=== PATIENT | female | born 1940 | race Caucasian/White ===

== ENCOUNTER → 2016-08-22 | Outpatient (REF) | payer MEDICARE ==
[2016-08-22 20:07] LABS: PERCENT SATURATION 22.3 % (13.2-37.4)
== END ==
LOC: M LAB REF 16:55
PROVIDERS: ATTEND Internal Medicine
DX: D64.9 Anemia, unspecified (principal)

== ENCOUNTER → 2017-03-08 | Outpatient (CLI) | payer MEDICARE ==
--- NOTE | 2017-03-08 16:29 | REP ---
PA and lateral chest: There are no comparisons. There is cardiomegaly. The interstitium is diffusely coarsened. This could be acute or chronic or acute on chronic. I cannot make this determination in the absence of comparison studies. There are no local infiltrates. No pleural effusions. There is a dual-chamber pacemaker. There is a spinal stimulator. There is advanced arthropathy of the shoulders. Impression: Cardiomegaly. Interstitium is coarsened, this could be acute, chronic or acute on chronic. There are no comparisons. Signed by Dionisio Rocha MD 03/08/2017 04:20 P
== END ==
LOC: M SMT 15:07
PROVIDERS: ATTEND Internal Medicine Pulmonary Disease
DX: I51.7 Cardiomegaly (principal); J84.89 Other specified interstitial pulmonary diseases; R06.02 Shortness of breath

== ENCOUNTER 2017-05-01 16:17 | Emergency (ER) | payer MEDICARE ==
[~2017-05-01] VITALS: Ht 157.5 cm; Wt 127.3 kg
[2017-05-01] MEDS ORDERED: FURO20TA2 PO (16:34)
[2017-05-01] MEDS ORDERED: DEXI60CA2 PO (16:34)
[2017-05-01] MEDS ORDERED: SOTA80TA2 PO (16:34)
[2017-05-01] MEDS ORDERED: ELIQ5TAB PO (16:34)
[2017-05-01] MEDS ORDERED: ADV250INH (16:34)
[2017-05-01] MEDS ORDERED: ROSU10TA2 (16:34)
[2017-05-01] MEDS ORDERED: DICY10CA13 (16:34)
[2017-05-01] MEDS ORDERED: PROAAER10 (16:34)
[2017-05-01] MEDS ORDERED: DULO1CAP2 PO (16:34)
[2017-05-01] MEDS ORDERED: COMB0.2S OU (16:34)
[2017-05-01] MEDS ORDERED: ZYLO300T4 PO (16:34)
[2017-05-01] MEDS ORDERED: PHENYLEPHRINE 1% NASAL DROP 30 ML ONE (16:45)
[2017-05-01 20:01] VITALS: BP 106/61
== END 2017-05-01 20:21 | disposition home or self-care (01) ==
LOC: M ED 16:17 → EDSEX 16:17 → EDBD 16:17 → M ED 20:21
DX: R04.0 Epistaxis (principal); E11.9 Type 2 diabetes mellitus without complications; I10 Essential (primary) hypertension; Z79.899 Other long term (current) drug therapy; Z88.1 Allergy status to other antibiotic agents; Z88.2 Allergy status to sulfonamides

== ENCOUNTER 2017-05-25 13:53 | Emergency (ER) | payer MEDICARE ==
[2017-05-25 15:00] LABS: HEMATOCRIT 33.6 % (36.0-47.0); HEMOGLOBIN 10.3 g/dl (12.0-16.0); MEAN CORPUSCULAR HGB CONC 30.7 g/dl (32.0-36.5); PLATELET COUNT, AUTOMATED 234 10^3/uL (150-450); RED BLOOD COUNT 3.43 10^6/uL (4.00-5.40); RED CELL DISTRIBUTION WIDTH 15.1 % (11.5-14.5); WHITE BLOOD COUNT 7.1 10^3/uL (4.0-10.0)
[2017-05-25 15:05] LABS: INR 1.14; PROTHROMBIN TIME 14.8 SECONDS (12.4-14.5)
[2017-05-25 15:23] LABS: ANION GAP 3 MEQ/L (8-16); BLOOD UREA NITROGEN 17 MG/DL (7-18); CALCIUM LEVEL 8.8 MG/DL (8.8-10.2); CARBON DIOXIDE LEVEL 32 MEQ/L (21-32); CHLORIDE LEVEL 104 MEQ/L (98-107); CREATININE FOR GFR 0.93 MG/DL (0.55-1.02); GLOMERULAR FILTRATION RATE > 60.0 (>39); GLUCOSE, FASTING 109 MG/DL (83-110); POTASSIUM SERUM 4.5 MEQ/L (3.5-5.1); SODIUM LEVEL 139 MEQ/L (136-145)
== END 2017-05-25 16:37 | disposition home or self-care (01) ==
LOC: M ED 13:53
DX: R04.0 Epistaxis (principal); I51.9 Heart disease, unspecified; E11.9 Type 2 diabetes mellitus without complications; J44.9 Chronic obstructive pulmonary disease, unspecified; K21.9 Gastro-esophageal reflux disease without esophagitis; Z79.899 Other long term (current) drug therapy; Z88.1 Allergy status to other antibiotic agents; Z88.2 Allergy status to sulfonamides
CPT/HCPCS: 80048

== ENCOUNTER → 2017-08-14 | Outpatient (REF) | payer MEDICARE ==
[2017-08-15 12:50] LABS: IRON (FE) 58 UG/DL (50-170)
== END ==
LOC: M LAB REF 11:52
DX: D64.9 Anemia, unspecified (principal)
CPT/HCPCS: 83540

== ENCOUNTER 2018-02-07 22:55 | Observation (INO) | payer MEDICARE ==
[2018-02-07] MEDS: OXYMETAZOLINE NASAL SPRAY (AFRIN) ×3 (23:15)
[2018-02-07] MEDS ORDERED: PROTHROMBIN COMPLEX CONCEN IV ×3 (23:15)
[2018-02-07] MEDS ORDERED: DILUENT IV ×3 (23:15)
[2018-02-07] MEDS: PROTHROMBIN COMPLEX CONCEN IV ×3 (23:45)
[2018-02-07] MEDS: DILUENT IV ×3 (23:45)
[2018-02-07 23:48] LABS: HEMOGLOBIN 10.1 g/dl (12.0-15.5); MEAN CORPUSCULAR HEMOGLOBIN 28.9 pg (27.0-33.0); MEAN CORPUSCULAR HGB CONC 29.7 g/dl (32.0-36.5); MEAN CORPUSCULAR VOLUME 97.1 fl (80.0-96.0); PLATELET COUNT, AUTOMATED 234 10^3/uL (150-450); RED CELL DISTRIBUTION WIDTH 16.7 % (11.5-14.5); WHITE BLOOD COUNT 7.8 10^3/uL (4.0-10.0)
[2018-02-08 00:05] LABS: ANION GAP 5 MEQ/L (8-16); BLOOD UREA NITROGEN 18 MG/DL (7-18); CALCIUM LEVEL 8.3 MG/DL (8.8-10.2); CARBON DIOXIDE LEVEL 34 MEQ/L (21-32); CHLORIDE LEVEL 101 MEQ/L (98-107); CREATININE FOR GFR 1.01 MG/DL (0.55-1.30); GLOMERULAR FILTRATION RATE 56.3 (>39); GLUCOSE, FASTING 108 MG/DL (70-100); POTASSIUM SERUM 4.1 MEQ/L (3.5-5.1); SODIUM LEVEL 140 MEQ/L (136-145)
[2018-02-08] MEDS: LIDOCAINE 2% JELLY 30 ML TOP ×3 (00:30)
[2018-02-08] MEDS ORDERED: ONDANSETRON 4MG/2ML VIAL (J2405) As Ordered ×3 (00:39)
[2018-02-08] MEDS: AMPICILLIN SOD/SULBACTAM SOD 3 GM in D5W MINI-BAG PLUS 100 ML IV ×3 (01:24)
[2018-02-08] MEDS ORDERED: METOCLOPRAMIDE INJ 10MG/2ML VIAL (J2765) As Ordered ×3 (04:11)
[2018-02-08] MEDS: METOCLOPRAMIDE INJ 10MG/2ML VIAL (J2765) IV ×3 (04:28)
[2018-02-08] MEDS: ALBUTEROL SULFATE 2.5 MG/0.5 ML INH NEB SOLN NEB ×3 (05:31)
[2018-02-08] MEDS: SOTALOL HCL 80 MG TAB PO ×6 (09:00→20:51)
[2018-02-08] MEDS: FUROSEMIDE 40 MG TAB PO ×6 (09:00→11:52)
[2018-02-08] MEDS ORDERED: ONDANSETRON 4MG/2ML VIAL (J2405) IV ×3 (09:30)
[2018-02-08] MEDS ORDERED: BISACODYL 10 MG SUPP PR ×3 (09:30)
[2018-02-08] MEDS ORDERED: DICYCLOMINE 10 MG CAP PO ×3 (09:30)
[2018-02-08] MEDS: ADVAIR HFA 115/21MCG INHALER INH ×6 (09:46→21:20)
[2018-02-08] MEDS: ALBUTEROL SULFATE 2.5 MG/0.5 ML INH NEB SOLN INH ×3 (10:40)
[2018-02-08] MEDS: FERROUS GLUCONATE 324 MG TAB PO ×3 (11:51)
[2018-02-08] MEDS: OMEPRAZOLE 20 MG CAP PO ×3 (11:51)
[2018-02-08] MEDS: ROSUVASTATIN 10 MG TAB (CRESTOR) PO ×3 (11:51)
[2018-02-08] MEDS: ESCITALOPRAM OXALATE 10 MG TAB (LEXAPRO) PO ×6 (11:51→20:52)
[2018-02-08] MEDS: POTASSIUM CHLORIDE 10 MEQ SR TABLET PO ×9 (11:51→20:52)
[2018-02-08] MEDS: ALLOPURINOL 300 MG TAB PO ×3 (11:52)
[2018-02-08 12:24] LABS: HEMATOCRIT 32.1 % (36.0-47.0); HEMOGLOBIN 9.8 g/dl (12.0-15.5)
[2018-02-08] MEDS: ACETAMINOPHEN TAB 650MG DOSE (2X325MG) PO ×6 (13:30→20:53)
[2018-02-08 20:02] LABS: HEMATOCRIT 32.1 % (36.0-47.0); HEMOGLOBIN 9.6 g/dl (12.0-15.5)
[2018-02-09] MEDS: OPTH OU ×9 (00:09→21:16)
[2018-02-09] MEDS: COMBIGAN OU ×9 (00:09→21:16)
[2018-02-09] MEDS: ACETAMINOPHEN TAB 650MG DOSE (2X325MG) PO ×9 (02:14→21:17)
[2018-02-09 04:31] LABS: HEMOGLOBIN 9.1 g/dl (12.0-15.5); MEAN CORPUSCULAR HEMOGLOBIN 28.3 pg (27.0-33.0); MEAN CORPUSCULAR HGB CONC 29.4 g/dl (32.0-36.5); MEAN CORPUSCULAR VOLUME 96.6 fl (80.0-96.0); PLATELET COUNT, AUTOMATED 208 10^3/uL (150-450); RED BLOOD COUNT 3.21 10^6/uL (4.00-5.40); RED CELL DISTRIBUTION WIDTH 16.5 % (11.5-14.5); WHITE BLOOD COUNT 7.4 10^3/uL (4.0-10.0)
[2018-02-09 04:49] LABS: ANION GAP 7 MEQ/L (8-16); BLOOD UREA NITROGEN 19 MG/DL (7-18); CALCIUM LEVEL 8.7 MG/DL (8.8-10.2); CARBON DIOXIDE LEVEL 30 MEQ/L (21-32); CHLORIDE LEVEL 106 MEQ/L (98-107); CREATININE FOR GFR 0.96 MG/DL (0.55-1.30); GLOMERULAR FILTRATION RATE 59.7 (>39); GLUCOSE, FASTING 94 MG/DL (70-100); POTASSIUM SERUM 4.9 MEQ/L (3.5-5.1); SODIUM LEVEL 143 MEQ/L (136-145)
[2018-02-09] MEDS: ADVAIR HFA 115/21MCG INHALER INH ×9 (07:36→21:56)
[2018-02-09] MEDS: SOTALOL HCL 80 MG TAB PO ×6 (07:56→21:16)
[2018-02-09] MEDS: POTASSIUM CHLORIDE 10 MEQ SR TABLET PO ×9 (07:56→21:15)
[2018-02-09] MEDS: OMEPRAZOLE 20 MG CAP PO ×3 (07:56)
[2018-02-09] MEDS: ALLOPURINOL 300 MG TAB PO ×3 (07:56)
[2018-02-09] MEDS: ROSUVASTATIN 10 MG TAB (CRESTOR) PO ×3 (07:57)
[2018-02-09] MEDS: ESCITALOPRAM OXALATE 10 MG TAB (LEXAPRO) PO ×6 (07:57→21:00)
[2018-02-09] MEDS: FUROSEMIDE 40 MG TAB PO ×3 (07:57)
[2018-02-09] MEDS: CEPHALEXIN 500 MG CAP PO ×6 (14:30→21:16)
[2018-02-10 00:53] LABS: HEMOGLOBIN 9.2 g/dl (12.0-15.5)
[2018-02-10] MEDS: ACETAMINOPHEN TAB 650MG DOSE (2X325MG) PO ×6 (03:33→21:51)
[2018-02-10 04:38] LABS: HEMATOCRIT 32.5 % (36.0-47.0); HEMOGLOBIN 9.4 g/dl (12.0-15.5); MEAN CORPUSCULAR HEMOGLOBIN 28.6 pg (27.0-33.0); MEAN CORPUSCULAR HGB CONC 28.9 g/dl (32.0-36.5); MEAN CORPUSCULAR VOLUME 98.8 fl (80.0-96.0); PLATELET COUNT, AUTOMATED 193 10^3/uL (150-450); RED BLOOD COUNT 3.29 10^6/uL (4.00-5.40); RED CELL DISTRIBUTION WIDTH 16.8 % (11.5-14.5); WHITE BLOOD COUNT 7.5 10^3/uL (4.0-10.0)
[2018-02-10 04:52] LABS: ANION GAP 7 MEQ/L (8-16); BLOOD UREA NITROGEN 21 MG/DL (7-18); CALCIUM LEVEL 9.1 MG/DL (8.8-10.2); CARBON DIOXIDE LEVEL 32 MEQ/L (21-32); CHLORIDE LEVEL 106 MEQ/L (98-107); CREATININE FOR GFR 1.02 MG/DL (0.55-1.30); GLOMERULAR FILTRATION RATE 55.7 (>39); GLUCOSE, FASTING 86 MG/DL (70-100); POTASSIUM SERUM 4.5 MEQ/L (3.5-5.1); SODIUM LEVEL 145 MEQ/L (136-145)
[2018-02-10] MEDS: CEPHALEXIN 500 MG CAP PO ×9 (05:09→21:38)
[2018-02-10] MEDS: ADVAIR HFA 115/21MCG INHALER INH ×6 (08:39→20:41)
[2018-02-10] MEDS: ALBUTEROL 90 MCG/ACT 8GM HFA INHALER INH ×6 (08:43→13:31)
[2018-02-10] MEDS: SOTALOL HCL 80 MG TAB PO ×6 (08:44→21:47)
[2018-02-10] MEDS: ALLOPURINOL 300 MG TAB PO ×3 (08:44)
[2018-02-10] MEDS: FUROSEMIDE 40 MG TAB PO ×3 (08:44)
[2018-02-10] MEDS: OMEPRAZOLE 20 MG CAP PO ×3 (08:44)
[2018-02-10] MEDS: POTASSIUM CHLORIDE 10 MEQ SR TABLET PO ×9 (08:44→21:38)
[2018-02-10] MEDS: ROSUVASTATIN 10 MG TAB (CRESTOR) PO ×3 (08:44)
[2018-02-10] MEDS: OPTH OU ×6 (08:45→21:38)
[2018-02-10] MEDS: FERROUS GLUCONATE 324 MG TAB PO ×3 (08:45)
[2018-02-10] MEDS: ESCITALOPRAM OXALATE 10 MG TAB (LEXAPRO) PO ×6 (08:45→21:38)
[2018-02-10] MEDS: COMBIGAN OU ×6 (08:45→21:38)
[2018-02-10] MEDS: OXYMETAZOLINE NASAL SPRAY (AFRIN) ×3 (14:00)
[2018-02-10] MEDS ORDERED: OXYMETAZOLINE NASAL SPRAY (AFRIN) ×3 (16:15)
[2018-02-11] MEDS ORDERED: diphenhydrAMINE 25 MG CAP PO ×3 (01:00)
[2018-02-11] MEDS: PERCOCET 5MG/325MG TAB PO ×3 (01:29)
[2018-02-11 06:00] LABS: HEMATOCRIT 30.2 % (36.0-47.0); HEMOGLOBIN 8.9 g/dl (12.0-15.5); MEAN CORPUSCULAR HEMOGLOBIN 29.5 pg (27.0-33.0); MEAN CORPUSCULAR HGB CONC 29.5 g/dl (32.0-36.5); PLATELET COUNT, AUTOMATED 204 10^3/uL (150-450); RED BLOOD COUNT 3.02 10^6/uL (4.00-5.40); RED CELL DISTRIBUTION WIDTH 16.9 % (11.5-14.5); WHITE BLOOD COUNT 7.8 10^3/uL (4.0-10.0)
[2018-02-11] MEDS: CEPHALEXIN 500 MG CAP PO ×9 (06:02→21:35)
[2018-02-11 06:13] LABS: ANION GAP 5 MEQ/L (8-16); BLOOD UREA NITROGEN 23 MG/DL (7-18); CALCIUM LEVEL 8.8 MG/DL (8.8-10.2); CARBON DIOXIDE LEVEL 33 MEQ/L (21-32); CHLORIDE LEVEL 102 MEQ/L (98-107); CREATININE FOR GFR 1.08 MG/DL (0.55-1.30); GLOMERULAR FILTRATION RATE 52.1 (>39); GLUCOSE, FASTING 93 MG/DL (70-100); POTASSIUM SERUM 4.7 MEQ/L (3.5-5.1); SODIUM LEVEL 140 MEQ/L (136-145)
[2018-02-11] MEDS: ADVAIR HFA 115/21MCG INHALER INH ×6 (08:21→20:26)
[2018-02-11] MEDS: OMEPRAZOLE 20 MG CAP PO ×3 (08:30)
[2018-02-11] MEDS: ROSUVASTATIN 10 MG TAB (CRESTOR) PO ×3 (08:30)
[2018-02-11] MEDS: ESCITALOPRAM OXALATE 10 MG TAB (LEXAPRO) PO ×6 (08:30→21:35)
[2018-02-11] MEDS: ALLOPURINOL 300 MG TAB PO ×3 (08:30)
[2018-02-11] MEDS: FUROSEMIDE 40 MG TAB PO ×3 (08:30)
[2018-02-11] MEDS: OPTH OU ×6 (08:31→21:36)
[2018-02-11] MEDS: POTASSIUM CHLORIDE 10 MEQ SR TABLET PO ×9 (08:31→21:36)
[2018-02-11] MEDS: SOTALOL HCL 80 MG TAB PO ×6 (08:31→21:35)
[2018-02-11] MEDS: COMBIGAN OU ×6 (08:31→21:36)
[2018-02-11] MEDS: ALBUTEROL 90 MCG/ACT 8GM HFA INHALER INH ×6 (13:47→20:26)
[2018-02-12] MEDS: ACETAMINOPHEN TAB 650MG DOSE (2X325MG) PO ×3 (00:44)
[2018-02-12] MEDS: IBUPROFEN 800 MG TAB PO ×3 (04:13)
[2018-02-12] MEDS: CEPHALEXIN 500 MG CAP PO ×3 (06:14)
[2018-02-12 06:47] LABS: HEMATOCRIT 30.1 % (36.0-47.0); HEMOGLOBIN 8.7 g/dl (12.0-15.5); MEAN CORPUSCULAR HEMOGLOBIN 28.7 pg (27.0-33.0); MEAN CORPUSCULAR HGB CONC 28.9 g/dl (32.0-36.5); MEAN CORPUSCULAR VOLUME 99.3 fl (80.0-96.0); PLATELET COUNT, AUTOMATED 199 10^3/uL (150-450); RED BLOOD COUNT 3.03 10^6/uL (4.00-5.40); RED CELL DISTRIBUTION WIDTH 16.7 % (11.5-14.5); WHITE BLOOD COUNT 7.6 10^3/uL (4.0-10.0)
[2018-02-12 07:05] LABS: ANION GAP 6 MEQ/L (8-16); BLOOD UREA NITROGEN 22 MG/DL (7-18); CALCIUM LEVEL 9.3 MG/DL (8.8-10.2); CARBON DIOXIDE LEVEL 31 MEQ/L (21-32); CHLORIDE LEVEL 103 MEQ/L (98-107); CREATININE FOR GFR 0.96 MG/DL (0.55-1.30); GLOMERULAR FILTRATION RATE 59.7 (>39); GLUCOSE, FASTING 104 MG/DL (70-100); POTASSIUM SERUM 5.1 MEQ/L (3.5-5.1); SODIUM LEVEL 140 MEQ/L (136-145)
[2018-02-12] MEDS: OMEPRAZOLE 20 MG CAP PO ×3 (08:34)
[2018-02-12] MEDS: SOTALOL HCL 80 MG TAB PO ×3 (08:34)
[2018-02-12] MEDS: FUROSEMIDE 40 MG TAB PO ×3 (08:35)
[2018-02-12] MEDS: ALLOPURINOL 300 MG TAB PO ×3 (08:35)
[2018-02-12] MEDS: ROSUVASTATIN 10 MG TAB (CRESTOR) PO ×3 (08:35)
[2018-02-12] MEDS: ESCITALOPRAM OXALATE 10 MG TAB (LEXAPRO) PO ×3 (08:35)
[2018-02-12] MEDS: OPTH OU ×3 (08:35)
[2018-02-12] MEDS: COMBIGAN OU ×3 (08:35)
[2018-02-12] MEDS: POTASSIUM CHLORIDE 10 MEQ SR TABLET PO ×3 (08:35)
[2018-02-12] MEDS: FERROUS GLUCONATE 324 MG TAB PO ×3 (08:35)
[2018-02-12] MEDS: ALBUTEROL 90 MCG/ACT 8GM HFA INHALER INH ×6 (08:49→11:17)
[2018-02-12] MEDS: ADVAIR HFA 115/21MCG INHALER INH ×3 (08:49)
== END 2018-02-12 15:06 | disposition home or self-care (01) ==
LOC: M ED INP 02-08 11:33 → M ED 22:55 → M MSPAV 02-08 11:33
DX: D68.32 Hemorrhagic disorder due to extrinsic circulating anticoagulants (principal); R04.0 Epistaxis; T45.515A Adverse effect of anticoagulants, initial encounter; D50.9 Iron deficiency anemia, unspecified; I49.5 Sick sinus syndrome; E78.2 Mixed hyperlipidemia; I50.9 Heart failure, unspecified; Z79.51 Long term (current) use of inhaled steroids; J96.11 Chronic respiratory failure with hypoxia; K58.8 Other irritable bowel syndrome; M10.9 Gout, unspecified; K21.9 Gastro-esophageal reflux disease without esophagitis; F32.9 Major depressive disorder, single episode, unspecified; Z85.3 Personal history of malignant neoplasm of breast; Z79.899 Other long term (current) drug therapy; Z88.2 Allergy status to sulfonamides
CPT/HCPCS: C9132

== ENCOUNTER 2018-09-11 10:31 | Inpatient (IN) | payer MEDICARE ==
[~2018-09-11] VITALS: Ht 157.5 cm; Wt 73.2 kg
[~2018-09-11 10:31] MED LIST: ADV250INH; ADV250INH INH; ALBU83IN INH; AUGM875T28 PO; CEPH500C PO; COMB0.2S OU; DEXI60CA2 PO; DICY10CA13; DICY1CAP8 PO; DULO1CAP2 PO; ELIQ5TAB PO; ESCI10TA2 PO; FERR325T16 PO; FURO20TA2 PO; FURO40TA2 PO; KLOR20TA42 PO; POTA20TA6; PROAAER10; PROAAER10 INH; ROSU10TA5; ROSU10TA5 PO; SOTA80TA2 PO; TYLE650T35 PO; ZYLO300T6 PO
[2018-09-11] MEDS ORDERED: FUROSEMIDE 40 MG/4 ML VIAL (J1940) IV ONE (11:15)
[2018-09-11 11:51] LABS: BASO # 0.1 10^3/uL (0.0-0.2); BASO % 0.7 % (0.0-1.0); EOS # 0.1 10^3/uL (0.0-0.50); EOS % 1.2 % (0.0-3.0); HEMATOCRIT 33.7 % (36.0-47.0); HEMOGLOBIN 10.1 g/dl (12.0-15.5); LYMPH # 1.5 10^3/uL (1.5-4.5); LYMPH % 20.7 % (24.0-44.0); MEAN CORPUSCULAR HEMOGLOBIN 29.4 pg (27.0-33.0); MONO # 0.6 10^3/uL (0.0-0.8); MONO % 7.8 % (0.0-5.0); NEUTROPHILS # 5.1 10^3/uL (1.8-7.7); NEUTROPHILS % 69.1 % (36.0-66.0); PLATELET COUNT, AUTOMATED 198 10^3/uL (150-450); RED BLOOD COUNT 3.44 10^6/uL (4.00-5.40); WHITE BLOOD COUNT 7.4 10^3/uL (4.0-10.0)
--- NOTE | 2018-09-11 12:08 | REP ---
CHEST, SINGLE VIEW: Single view of the chest is performed and compared to a prior study of 03/08/2017. There is cardiomegaly and vascular congestion. There are mildly increased interstitial markings which may represent mild interstitial edema or fibrosis. No consolidation is seen. There is calcification of the thoracic aorta. The mediastinal silhouette is unchanged. There is a left dual-lead pacemaker. There is a dorsal column stimulator device with the leads in the mid thoracic region. Electronically Signed by Dionisio Hull MD 09/13/2018 11:48 A
[2018-09-11 12:16] LABS: BLOOD UREA NITROGEN 14 MG/DL (7-18); CALCIUM LEVEL 8.5 MG/DL (8.8-10.2); CARBON DIOXIDE LEVEL 33 MEQ/L (21-32); CHLORIDE LEVEL 101 MEQ/L (98-107); CK-MB VALUE MASS < 1.0 NG/ML (<3.6); CPK CREATINE PHOSPHOKINASE 34 U/L (26-192); CREATININE FOR GFR 0.93 MG/DL (0.55-1.30); GLOMERULAR FILTRATION RATE > 60.0 (>39); GLUCOSE, FASTING 90 MG/DL (70-100); MB/CK RELATIVE INDEX 2.94 (< OR =4); NT-PRO BNP 2357 PG/ML (<450); POTASSIUM SERUM 4.6 MEQ/L (3.5-5.1); SODIUM LEVEL 138 MEQ/L (136-145); TROPONIN I < 0.02 NG/ML (< 0.10)
--- NOTE | 2018-09-11 12:29 | HPEPDOC ---
[facility] Medical History & Physical Date of Admission September 11, 2018 History and Physical CHIEF COMPLAINT: Shortness of breath HISTORY OF PRESENT ILLNESS: 77 yo female for several day history of worsening shortness of breath and orthopnea. Admits to non-compliance with diuretic therapy at home because of burden of increased urination. Denies any other complaints. PAST MEDICAL HISTORY: 1. Acute blood loss anemia on chronic anemia. 2. Iron deficiency anemia. 3. Tachycardia-bradycardia syndrome. 4. Dyslipidemia. 5. Congestive heart failure. 6. Chronic obstructive pulmonary disease with chronic hypoxic respiratory failure. 7. Irritable bowel syndrome. 8. Gout. 9. Gastroesophageal reflux disease. 10. Depression. 11. History of breast cancer. ALLERGIES: Please see below. REVIEW OF SYSTEMS: As per HPI HOME MEDICATIONS: Please see below. PHYSICAL EXAMINATION: VSS General: NAD, lying comfortably in bed HEENT: NC/AT, nasal cannula in place, EOMI Lungs: b/l crackles lower bases Heart: +S1S2, RRR Abd: soft, obese, NT, +BS Ext: peripheral edema LABORATORY DATA: See below. ASSESSMENT: 77 yo female for decompensated heart failure secondary to non- compliance with medical therapy: #CHF - echo pending - telemetry monitoring - I/O's, daily weights - IV lasix 40 q8h #tachy-adán syndrome - s/p PPM #chronic hypoxic respiratory failure/COPD - supplemental oxygen as needed - uses 2-3L at home #JOSEF - non-compliant with CPAP #breast CA - s/p RT over 10 years ago - [place] #DLP #Gout #GERD #Depression #chronic anemia #DVT prophylaxis - heparin SC Vital Signs Vital Signs Date Time Temp Pulse Resp B/P (MAP) Pulse Ox O2 Delivery O2 Flow Rate FiO2 09/11/18 12:14 Nasal Cannula 3.0 09/11/18 10:51 98.4 70 24 122/62 (82) 94 Laboratory Data Labs 24H Laboratory Tests 2 09/11/18 11:33: Immature Granulocyte % (Auto) 0.5, White Blood Count 7.4, Red Blood Count 3.44L, Hemoglobin 10.1L, Hematocrit 33.7L, Mean Corpuscular Volume 98.0H, Mean Corpuscular Hemoglobin 29.4, Mean Corpuscular Hemoglobin Concent 30.0L, Red Cell Distribution Width 15.8H, Platelet Count 198, Neutrophils (%) (Auto) 69.1H, Lymphocytes (%) (Auto) 20.7L, Monocytes (%) (Auto) 7.8H, Eosinophils (%) (Auto) 1.2, Basophils (%) (Auto) 0.7, Neutrophils # (Auto) 5.1, Lymphocytes # (Auto) 1.5, Monocytes # (Auto) 0.6, Eosinophils # (Auto) 0.1, Basophils # (Auto) 0.1, Nucleated Red Blood Cells % (auto) 0.0, Anion Gap 4L, Glomerular Filtration Rate > 60.0, Blood Urea Nitrogen 14, Creatinine 0.93, Sodium Level 138, Potassium Level 4.6, Chloride Level 101, Carbon Dioxide Level 33H, Calcium Level 8.5L, Total Creatine Kinase 34, Creatine Kinase MB < 1.0, Creatine Kinase MB Relative Index 2.94, Troponin I < 0.02, BB-Nwa-O-Type Natriuretic Peptide 2357H CBC/BMP Laboratory Tests 09/11/18 11:33 Red Blood Count 3.44 L, Mean Corpuscular Volume 98.0 H, Mean Corpuscular Hemoglobin 29.4, Mean Corpuscular Hemoglobin Concent 30.0 L, Red Cell Distribution Width 15.8 H, Neutrophils (%) (Auto) 69.1 H, Lymphocytes (%) (Auto) 20.7 L, Monocytes (%) (Auto) 7.8 H, Eosinophils (%) (Auto) 1.2, Basophils (%) (Auto) 0.7, Neutrophils # (Auto) 5.1, Lymphocytes # (Auto) 1.5, Monocytes # (Auto) 0.6, Eosinophils # (Auto) 0.1, Basophils # (Auto) 0.1, Calcium Level 8.5 L, Total Creatine Kinase 34 Home Medications Scheduled Allopurinol (Zyloprim) 300 Mg Tab, 300 MG PO DAILY Aspirin (Aspirin) 325 Mg Tablet, 325 MG PO DAILY Brimonidine Tartrate/Timolol (Combigan 0.2%-0.5% Eye Drops) 1 Danielle Danielle, 1 DROP OU BID Buspirone HCl (Buspirone HCl) 5 Mg Tablet, 2.5 MG PO BID Dexlansoprazole (Dexilant) 60 Mg Cap, 60 MG PO DAILY Escitalopram Oxalate (Escitalopram Oxalate) 10 Mg Tab, 10 MG PO BID Furosemide (Furosemide) 40 Mg Tab, 40 MG PO DAILY Potassium Chloride (Klor-Con M20) 20 Meq Tabcr, 40 MEQ PO TID Rosuvastatin Calcium (Rosuvastatin Calcium) 10 Mg Tab, 10 MG PO DAILY Salmeterol/Fluticasone (Advair 250-50 Diskus) 14 Puff/Inhaler Aerp, 1 PUFF INH BID Sotalol HCl (Sotalol) 80 Mg Tab, 80 MG PO BID Scheduled PRN Acetaminophen (Tylenol Arthritis) 650 Mg Tab, 650 MG PO Q8H PRN for PAIN Albuterol Sulf (Albuterol Sulfate) 2.5 Mg/3 Ml Nebu, 2.5 MG INH Q4H PRN for SHORTNESS OF BREATH Albuterol Sulfate (Proair Hfa) 108 Mcg/Act Aer, 2 PUFF INH QID PRN for SHORTNESS OF BREATH Sodium Chloride/Aloe Vera ([place] Saline Nasal Gel [place]) 22 Ml [place], 1 DOSE NA DAILY PRN for NASAL DRYNESS Allergies Coded Allergies: Sulfa (Sulfonamide Antibiotics) (Verified Allergy, Unknown, itching, 09/11/18) metoclopramide (Verified Allergy, Unknown, hives, 09/11/18) A-FIB/CHADSVASC A-FIB History Current/History of A-Fib/PAF?: No DOMINIQUE WALDEN MD September 11, 2018 12:29
[2018-09-11] MEDS ORDERED: HM S0.65 NARES (12:57)
[2018-09-11] MEDS ORDERED: ASPI1TAB20 PO (12:57)
[2018-09-11] MEDS ORDERED: AYRGEL (13:10)
[2018-09-11] MEDS ORDERED: BUSP5TA PO (13:10)
[2018-09-11] MEDS ORDERED: SODIUM CHLORIDE 0.9% NASAL GEL 15GM (AYR) PRN (13:30)
--- NOTE | 2018-09-11 15:01 | ECGEPIP ---
Stationary ECG Study [facility] - ED Test Date: 2018-09-11 Pat Name: DAVID MIRAMONTES Department: Room: - Gender: F [employer]: JT : 1940 Requested By: Jose Patterson Order Number: [id number] Reading MD: Linus Hayes Measurements Intervals [place] Rate: 70 P: 106 DC: 348 QRS: 23 QRSD: 85 T: 32 QT: 399 QTc: 432 Interpretive Statements ELECTRONIC ATRIAL PACEMAKER NONSPECIFIC ST & T-WAVE ABNORMALITY Similar to tracing done 02-08-18 Electronically Signed On 09-11-2018 15:01:24 EDT by Linus Hayes
[2018-09-11 16:00] VITALS: BP 154/72
[2018-09-11] MEDS ORDERED: SLF 3 ML SYR IV PRN (16:00)
[2018-09-11] MEDS: FUROSEMIDE 40 MG/4 ML VIAL (J1940) IV SCH (17:02)
[2018-09-11 18:50] LABS: CK-MB VALUE MASS < 1.0 NG/ML (<3.6); CPK CREATINE PHOSPHOKINASE 33 U/L (26-192); MB/CK RELATIVE INDEX 3.03 (< OR =4); TROPONIN I < 0.02 NG/ML (< 0.10)
[2018-09-11 20:00] VITALS: BP_SYST 135; BP_SYST 137; BP_DIAS 63; BP_DIAS 68
[2018-09-11] MEDS: ESCITALOPRAM OXALATE 10 MG TAB (LEXAPRO) PO SCH (21:24)
[2018-09-11] MEDS: SOTALOL HCL 80 MG TAB PO SCH (21:24)
[2018-09-11] MEDS: busPIRone 5 MG TAB PO SCH (21:24)
[2018-09-11] MEDS: HEPARIN SOD (PORCINE) 5000 UNITS/ML VIAL SQ SCH (21:25)
[2018-09-11] MEDS: SLF 3 ML SYR IV SCH (22:00)
[2018-09-11 23:59] VITALS: BP 134/60
[2018-09-12] MEDS: ALBUTEROL SULFATE 2.5 MG/0.5 ML INH NEB SOLN INH PRN ×5 (00:12→20:29)
[2018-09-12] MEDS: FUROSEMIDE 40 MG/4 ML VIAL (J1940) IV SCH (00:17)
[2018-09-12 04:00] VITALS: BP 117/56
[2018-09-12] MEDS: SLF 3 ML SYR IV SCH ×3 (06:00→21:14)
[2018-09-12 06:07] LABS: BASO % 0.5 % (0.0-1.0); EOS # 0.2 10^3/uL (0.0-0.50); EOS % 2.6 % (0.0-3.0); HEMATOCRIT 32.4 % (36.0-47.0); HEMOGLOBIN 9.8 g/dl (12.0-15.5); LYMPH # 1.5 10^3/uL (1.5-4.5); LYMPH % 20.2 % (24.0-44.0); MEAN CORPUSCULAR HEMOGLOBIN 28.9 pg (27.0-33.0); MEAN CORPUSCULAR HGB CONC 30.2 g/dl (32.0-36.5); MEAN CORPUSCULAR VOLUME 95.6 fl (80.0-96.0); MONO # 0.7 10^3/uL (0.0-0.8); MONO % 9.2 % (0.0-5.0); NEUTROPHILS # 5.1 10^3/uL (1.8-7.7); NEUTROPHILS % 67.1 % (36.0-66.0); PLATELET COUNT, AUTOMATED 196 10^3/uL (150-450); RED BLOOD COUNT 3.39 10^6/uL (4.00-5.40); WHITE BLOOD COUNT 7.6 10^3/uL (4.0-10.0)
[2018-09-12 06:26] LABS: CALCIUM LEVEL 8.5 MG/DL (8.8-10.2); CREATININE FOR GFR 1.21 MG/DL (0.55-1.30); GLOMERULAR FILTRATION RATE 45.7 (>39); POTASSIUM SERUM 3.6 MEQ/L (3.5-5.1)
[2018-09-12 08:00] VITALS: BP 113/53
[2018-09-12] MEDS: HEPARIN SOD (PORCINE) 5000 UNITS/ML VIAL SQ SCH ×2 (08:54→21:09)
[2018-09-12] MEDS: ALLOPURINOL 300 MG TAB PO SCH (08:56)
[2018-09-12] MEDS: ASPIRIN 325 MG TAB PO SCH (08:56)
[2018-09-12] MEDS: SOTALOL HCL 80 MG TAB PO SCH ×2 (08:56→21:10)
[2018-09-12] MEDS: ROSUVASTATIN 10 MG TAB (CRESTOR) PO SCH (08:56)
[2018-09-12] MEDS: ESCITALOPRAM OXALATE 10 MG TAB (LEXAPRO) PO SCH ×2 (08:56→21:10)
[2018-09-12] MEDS: busPIRone 5 MG TAB PO SCH ×2 (08:56→21:13)
[2018-09-12] MEDS ORDERED: FLUBLOK(EGG FREE)(QUAD)INFLUENZA VACC 0.5ML SYRINGE (90682)18YRS&OLDER IM ONE (09:00)
--- NOTE | 2018-09-12 09:02 | IPNPDOC ---
Text Note Date of Service The patient was seen on 09/12/18. NOTE Subjective: Patient seen and examined at bedside. No acute overnight events reported. Patient states her breathing feels better today. States she will have difficulty participating with PT. Objective: General: NAD, sitting comfortably in chair HEENT: NC/AT Lungs: b/lcrackles lower bases Heart: +S1S2, RRR Abd: soft, NT, +BS Ext: peripheral edema b/l LE A/P 77 yo female for decompensated heart failure #CHF - responded well to IV diuresis - creatinine increased - hold diuretics today - echo pending - telemetry monitoring - I/O's, daily weights #tachy-adán syndrome - s/p PPM #chronic hypoxic respiratory failure/COPD - supplemental oxygen as needed - uses 2-3L at home #JOSEF - non-compliant with CPAP #breast CA - s/p RT over 10 years ago - [facility] [place] #DLP #Gout #GERD #Depression #chronic anemia #DVT prophylaxis - heparin SC VS,Fishbone, I+O VS, Fishbone, I+O Laboratory Tests 09/11/18 11:33 Red Blood Count 3.44 L, Mean Corpuscular Volume 98.0 H, Mean Corpuscular Hemoglobin 29.4, Mean Corpuscular Hemoglobin Concent 30.0 L, Red Cell Distribution Width 15.8 H, Neutrophils (%) (Auto) 69.1 H, Lymphocytes (%) (Auto) 20.7 L, Monocytes (%) (Auto) 7.8 H, Eosinophils (%) (Auto) 1.2, Basophils (%) (Auto) 0.7, Neutrophils # (Auto) 5.1, Lymphocytes # (Auto) 1.5, Monocytes # (Auto) 0.6, Eosinophils # (Auto) 0.1, Basophils # (Auto) 0.1, Calcium Level 8.5 L, Total Creatine Kinase 34 09/12/18 05:30 Red Blood Count 3.39 L, Mean Corpuscular Volume 95.6, Mean Corpuscular Hemoglobin 28.9, Mean Corpuscular Hemoglobin Concent 30.2 L, Red Cell Distribution Width 15.6 H, Neutrophils (%) (Auto) 67.1 H, Lymphocytes (%) (Auto) 20.2 L, Monocytes (%) (Auto) 9.2 H, Eosinophils (%) (Auto) 2.6, Basophils (%) (Auto) 0.5, Neutrophils # (Auto) 5.1, Lymphocytes # (Auto) 1.5, Monocytes # (Auto) 0.7, Eosinophils # (Auto) 0.2, Basophils # (Auto) 0.0, Calcium Level 8.5 L Vital Signs Date Time Temp Pulse Resp B/P (MAP) Pulse Ox O2 Delivery O2 Flow Rate FiO2 09/12/18 08:56 71 113/53 09/12/18 08:00 98.4 18 92 3.0 09/11/18 15:30 Nasal Cannula I&O- Last 24 Hours up to 6 AM 09/12/18 06:00 Intake Total 240 ml Output Total 3400 ml Balance -3160 ml DOMINIQUE WALDEN MD September 12, 2018 09:02
[2018-09-12] MEDS: ACETAMINOPHEN 650MG ER TAB (TYLENOL ARTHRITIS) PO PRN ×2 (09:41→21:13)
[2018-09-12 12:00] VITALS: BP 120/60
[2018-09-12 16:00] VITALS: BP 117/58
--- NOTE | 2018-09-12 16:30 | ECHO ---
DATE OF PROCEDURE: 09/12/2018 REFERRING PHYSICIAN: Dr. Rolando Garcia INDICATION: Heart failure, unspecified. HEIGHT: 62 inches WEIGHT: 128.9 kilograms 2D MEASUREMENTS: Left atrium: 5.0 cm Ventricular septum: 1.12 cm Posterior wall: 1.09 cm Left ventricle diastole: 4.8 cm Aortic root: 3.5 cm DOPPLER MEASUREMENTS: Aortic valve velocity: 104 cm/s LVOT velocity: 88.0 cm/s Mitral E velocity: 67.6 cm/s Mitral A velocity: 39.0 cm/s Mitral deceleration time: 222 ms Very mild tricuspid regurgitation. Estimated right ventricle systolic pressure: 32 mmHg assuming a right atrial pressure of 5 mmHg. Trace pulmonic regurgitation. MITRAL ANNULAR TISSUE DOPPLER: E prime septal: 5.6 cm/s E prime lateral: 8.5 cm/s DESCRIPTION: Rhythm was sinus. This was a moderately technically difficult echocardiogram. Technically difficult subcostal views. No arch views (suprasternal views) obtained. No pericardial effusion. This was a 2D, M-mode, color flow Doppler and pulse wave Doppler examination and included mitral annular tissue Doppler. CONCLUSIONS: 1. Normal left ventricle internal dimensions and wall thickness. Normal regional left ventricular (LV) wall motion and wall thickening. Normal LV systolic function. Left ventricular ejection fraction (LVEF) 65-70% by visual assessment. Probable grade 2 LV diastolic dysfunction (pseudo-normal LV filling pattern). 2. Normal right ventricle size and systolic function. Normal estimated right ventricle systolic pressure and pulmonary artery systolic pressure. 3. Severe left atrial dilatation. 4. Very difficult to visualize pacemaker leads on this study.
[2018-09-12 19:24] VITALS: BP 133/61
[2018-09-12 23:28] VITALS: BP 103/51
[2018-09-13] MEDS: ALBUTEROL SULFATE 2.5 MG/0.5 ML INH NEB SOLN INH PRN ×3 (00:34→23:15)
[2018-09-13 03:36] VITALS: BP 116/53
[2018-09-13 04:17] LABS: BASO % 0.4 % (0.0-1.0); EOS # 0.2 10^3/uL (0.0-0.50); EOS % 3.4 % (0.0-3.0); HEMATOCRIT 31.5 % (36.0-47.0); HEMOGLOBIN 9.6 g/dl (12.0-15.5); LYMPH # 1.8 10^3/uL (1.5-4.5); LYMPH % 26.9 % (24.0-44.0); MEAN CORPUSCULAR HEMOGLOBIN 29.1 pg (27.0-33.0); MEAN CORPUSCULAR HGB CONC 30.5 g/dl (32.0-36.5); MEAN CORPUSCULAR VOLUME 95.5 fl (80.0-96.0); MONO # 0.7 10^3/uL (0.0-0.8); MONO % 9.5 % (0.0-5.0); NEUTROPHILS # 4.1 10^3/uL (1.8-7.7); NEUTROPHILS % 59.4 % (36.0-66.0); PLATELET COUNT, AUTOMATED 180 10^3/uL (150-450); WHITE BLOOD COUNT 6.9 10^3/uL (4.0-10.0)
[2018-09-13 04:39] LABS: CALCIUM LEVEL 8.4 MG/DL (8.8-10.2); CREATININE FOR GFR 1.08 MG/DL (0.55-1.30); GLOMERULAR FILTRATION RATE 52.1 (>39); POTASSIUM SERUM 3.5 MEQ/L (3.5-5.1)
[2018-09-13] MEDS: SLF 3 ML SYR IV SCH ×3 (05:36→20:40)
[2018-09-13 08:00] VITALS: BP 131/61
[2018-09-13] MEDS: ALLOPURINOL 300 MG TAB PO SCH (08:19)
[2018-09-13] MEDS: ESCITALOPRAM OXALATE 10 MG TAB (LEXAPRO) PO SCH ×2 (08:19→20:39)
[2018-09-13] MEDS: ASPIRIN 325 MG TAB PO SCH (08:19)
[2018-09-13] MEDS: HEPARIN SOD (PORCINE) 5000 UNITS/ML VIAL SQ SCH ×2 (08:20→20:39)
[2018-09-13] MEDS: ROSUVASTATIN 10 MG TAB (CRESTOR) PO SCH (08:21)
[2018-09-13] MEDS: busPIRone 5 MG TAB PO SCH ×2 (08:21→20:40)
[2018-09-13] MEDS: SOTALOL HCL 80 MG TAB PO SCH ×2 (08:28→20:39)
--- NOTE | 2018-09-13 08:49 | IPNPDOC ---
Text Note Date of Service The patient was seen on 09/13/18. NOTE Subjective: Patient seen and examined at bedside. No acute overnight events reported. Patient states her breathing feels better today. Objective: General: NAD, lying comfortably in bed HEENT: NC/AT Lungs: b/l crackles lower bases Heart: +S1S2, RRR Abd: soft, NT, +BS Ext: peripheral edema b/l LE A/P 77 yo female for decompensated heart failure #CHF - responded well to IV diuresis - resume home lasix 40 daily - echo = HFpEF - I/O's, daily weights #tachy-adán syndrome - s/p PPM #chronic hypoxic respiratory failure/COPD - supplemental oxygen as needed - uses 2-3L at home #JOSEF - non-compliant with CPAP #breast CA - s/p RT over 10 years ago - [facility] [place] #DLP #Gout #GERD #Depression #chronic anemia #DVT prophylaxis - heparin SC Dispo: transfer to med/surg, continue PT, placement. VS,Fishbone, I+O VS, Fishbone, I+O Laboratory Tests 09/13/18 04:07 Red Blood Count 3.30 L, Mean Corpuscular Volume 95.5, Mean Corpuscular Hemoglobin 29.1, Mean Corpuscular Hemoglobin Concent 30.5 L, Red Cell Distribution Width 15.6 H, Neutrophils (%) (Auto) 59.4, Lymphocytes (%) (Auto) 26.9, Monocytes (%) (Auto) 9.5 H, Eosinophils (%) (Auto) 3.4 H, Basophils (%) (Auto) 0.4, Neutrophils # (Auto) 4.1, Lymphocytes # (Auto) 1.8, Monocytes # (Auto) 0.7, Eosinophils # (Auto) 0.2, Basophils # (Auto) 0.0, Calcium Level 8.4 L Vital Signs Date Time Temp Pulse Resp B/P (MAP) Pulse Ox O2 Delivery O2 Flow Rate FiO2 09/13/18 08:28 71 131/61 09/13/18 08:00 98.8 17 96 3.0 09/11/18 15:30 Nasal Cannula I&O- Last 24 Hours up to 6 AM 09/13/18 06:00 Intake Total 760 ml Output Total 750 ml Balance 10 ml DOMINIQUE WALDEN MD September 13, 2018 08:49
[2018-09-13] MEDS ORDERED: ENTER DRUG NAME HERE (PATIENT'S OWN MED) INH SCH (09:00)
[2018-09-13] MEDS: FUROSEMIDE 40 MG TAB PO SCH (10:29)
[2018-09-13] MEDS: ADVAIR HFA 115/21MCG INHALER INH SCH ×2 (11:49→19:34)
[2018-09-13 12:00] VITALS: BP 98/52
[2018-09-13 16:00] VITALS: BP 139/64
[2018-09-13 20:00] VITALS: BP 167/72
[2018-09-13] MEDS: PRO AIR INH PRN (21:49)
[2018-09-13 23:59] VITALS: BP 131/63
[2018-09-14 04:00] VITALS: BP 129/60
[2018-09-14] MEDS: SLF 3 ML SYR IV SCH ×3 (05:53→22:00)
[2018-09-14] MEDS: ACETAMINOPHEN 650MG ER TAB (TYLENOL ARTHRITIS) PO PRN ×2 (05:53→23:12)
[2018-09-14 06:11] LABS: BASO % 0.3 % (0.0-1.0); EOS # 0.3 10^3/uL (0.0-0.50); EOS % 3.5 % (0.0-3.0); HEMATOCRIT 34.4 % (36.0-47.0); HEMOGLOBIN 10.4 g/dl (12.0-15.5); LYMPH # 1.6 10^3/uL (1.5-4.5); LYMPH % 21.9 % (24.0-44.0); MEAN CORPUSCULAR HEMOGLOBIN 29.2 pg (27.0-33.0); MEAN CORPUSCULAR HGB CONC 30.2 g/dl (32.0-36.5); MEAN CORPUSCULAR VOLUME 96.6 fl (80.0-96.0); MONO # 0.7 10^3/uL (0.0-0.8); MONO % 9.3 % (0.0-5.0); NEUTROPHILS # 4.6 10^3/uL (1.8-7.7); NEUTROPHILS % 64.6 % (36.0-66.0); PLATELET COUNT, AUTOMATED 187 10^3/uL (150-450); RED BLOOD COUNT 3.56 10^6/uL (4.00-5.40); WHITE BLOOD COUNT 7.2 10^3/uL (4.0-10.0)
[2018-09-14 06:19] LABS: CALCIUM LEVEL 8.7 MG/DL (8.8-10.2); CREATININE FOR GFR 0.96 MG/DL (0.55-1.30); GLOMERULAR FILTRATION RATE 59.7 (>39); POTASSIUM SERUM 3.4 MEQ/L (3.5-5.1)
[2018-09-14] MEDS: ADVAIR HFA 115/21MCG INHALER INH SCH ×2 (07:22→19:36)
[2018-09-14] MEDS: ALBUTEROL SULFATE 2.5 MG/0.5 ML INH NEB SOLN INH PRN ×2 (07:23→13:20)
[2018-09-14 08:00] VITALS: BP 115/54
[2018-09-14] MEDS: ESCITALOPRAM OXALATE 10 MG TAB (LEXAPRO) PO SCH ×2 (09:01→21:03)
[2018-09-14] MEDS: ASPIRIN 325 MG TAB PO SCH (09:01)
[2018-09-14] MEDS: busPIRone 5 MG TAB PO SCH ×2 (09:01→21:03)
[2018-09-14] MEDS: SOTALOL HCL 80 MG TAB PO SCH ×2 (09:03→21:03)
[2018-09-14] MEDS: FUROSEMIDE 40 MG TAB PO SCH (09:04)
[2018-09-14] MEDS: ALLOPURINOL 300 MG TAB PO SCH (09:04)
[2018-09-14] MEDS: ROSUVASTATIN 10 MG TAB (CRESTOR) PO SCH (09:04)
[2018-09-14] MEDS: HEPARIN SOD (PORCINE) 5000 UNITS/ML VIAL SQ SCH ×2 (09:04→21:03)
[2018-09-14] MEDS ORDERED: POTASSIUM CHLORIDE 10 MEQ SR TABLET PO ONE (09:15)
--- NOTE | 2018-09-14 09:19 | IPNPDOC ---
Text Note Date of Service The patient was seen on 09/14/18. NOTE Subjective: Patient seen and examined at bedside. No acute overnight events reported. Patient states her breathing feels better today. Objective: General: NAD, lying comfortably in bed HEENT: NC/AT Lungs: b/l crackles lower bases Heart: +S1S2, RRR Abd: soft, NT, +BS Ext: peripheral edema b/l LE A/P 77 yo female for decompensated heart failure #CHF - responded well to IV diuresis - resume home lasix 40 daily - echo = HFpEF - I/O's, daily weights #hypokalemia - replete with oral supplement - check mag #tachy-adán syndrome - s/p PPM #chronic hypoxic respiratory failure/COPD - supplemental oxygen as needed - uses 2-3L at home #JOSEF - non-compliant with CPAP #breast CA - s/p RT over 10 years ago - [facility] [place] #DLP #Gout #GERD #Depression #chronic anemia #DVT prophylaxis - heparin SC Dispo: continue PT, will need placement VS,Fishbone, I+O VS, Fishbone, I+O Laboratory Tests 09/14/18 05:13 Red Blood Count 3.56 L, Mean Corpuscular Volume 96.6 H, Mean Corpuscular Hemoglobin 29.2, Mean Corpuscular Hemoglobin Concent 30.2 L, Red Cell Distribution Width 15.4 H, Neutrophils (%) (Auto) 64.6, Lymphocytes (%) (Auto) 21.9 L, Monocytes (%) (Auto) 9.3 H, Eosinophils (%) (Auto) 3.5 H, Basophils (%) (Auto) 0.3, Neutrophils # (Auto) 4.6, Lymphocytes # (Auto) 1.6, Monocytes # (Auto) 0.7, Eosinophils # (Auto) 0.3, Basophils # (Auto) 0.0, Calcium Level 8.7 L Vital Signs Date Time Temp Pulse Resp B/P (MAP) Pulse Ox O2 Delivery O2 Flow Rate FiO2 09/14/18 09:03 64 115/54 09/14/18 08:00 98.6 20 98 3.0 09/11/18 15:30 Nasal Cannula I&O- Last 24 Hours up to 6 AM 09/14/18 06:00 Intake Total 1260 ml Output Total 1650 ml Balance -390 ml DOMINIQUE WALDEN MD September 14, 2018 09:19
[2018-09-14 09:34] LABS: MAGNESIUM LEVEL 1.6 MG/DL (1.8-2.4)
[2018-09-14 12:00] VITALS: BP 105/56
[2018-09-14 16:00] VITALS: BP 118/56
[2018-09-14] MEDS ORDERED: MAG SULF 1GM/100ML (MAG RUN) 1 GM in APPROPRIATE DILUENT 1 EA IV ONE (18:00)
[2018-09-14 20:00] VITALS: BP 129/84
[2018-09-14] MEDS: PRO AIR INH PRN (21:44)
[2018-09-14] MEDS ORDERED: ADVAIR HFA 115/21MCG INHALER INH ONE (23:45)
[2018-09-15] MEDS: PRO AIR INH PRN ×3 (01:51→18:47)
[2018-09-15 04:00] VITALS: BP 142/63
[2018-09-15 05:24] LABS: BASO % 0.5 % (0.0-1.0); EOS # 0.2 10^3/uL (0.0-0.50); EOS % 3.5 % (0.0-3.0); HEMATOCRIT 34.2 % (36.0-47.0); HEMOGLOBIN 10.1 g/dl (12.0-15.5); LYMPH # 1.8 10^3/uL (1.5-4.5); LYMPH % 27.8 % (24.0-44.0); MEAN CORPUSCULAR HEMOGLOBIN 29.1 pg (27.0-33.0); MEAN CORPUSCULAR HGB CONC 29.5 g/dl (32.0-36.5); MEAN CORPUSCULAR VOLUME 98.6 fl (80.0-96.0); MONO # 0.7 10^3/uL (0.0-0.8); MONO % 10.2 % (0.0-5.0); NEUTROPHILS # 3.7 10^3/uL (1.8-7.7); NEUTROPHILS % 57.5 % (36.0-66.0); PLATELET COUNT, AUTOMATED 202 10^3/uL (150-450); RED BLOOD COUNT 3.47 10^6/uL (4.00-5.40); WHITE BLOOD COUNT 6.4 10^3/uL (4.0-10.0)
[2018-09-15 05:45] LABS: CALCIUM LEVEL 8.7 MG/DL (8.8-10.2); CREATININE FOR GFR 1.14 MG/DL (0.55-1.30); GLOMERULAR FILTRATION RATE 48.9 (>39); POTASSIUM SERUM 3.5 MEQ/L (3.5-5.1)
[2018-09-15] MEDS: SLF 3 ML SYR IV SCH ×3 (06:00→20:56)
[2018-09-15] MEDS ORDERED: FUROSEMIDE 100 MG/10 ML VIAL (J1940) IV ONE (07:00)
[2018-09-15 08:00] VITALS: BP 137/78
[2018-09-15] MEDS: ROSUVASTATIN 10 MG TAB (CRESTOR) PO SCH (08:24)
[2018-09-15] MEDS: ASPIRIN 325 MG TAB PO SCH (08:24)
[2018-09-15] MEDS: SOTALOL HCL 80 MG TAB PO SCH ×2 (08:24→20:56)
[2018-09-15] MEDS: ESCITALOPRAM OXALATE 10 MG TAB (LEXAPRO) PO SCH ×2 (08:24→20:55)
[2018-09-15] MEDS: ALLOPURINOL 300 MG TAB PO SCH (08:24)
[2018-09-15] MEDS: HEPARIN SOD (PORCINE) 5000 UNITS/ML VIAL SQ SCH ×2 (08:25→20:54)
[2018-09-15] MEDS: busPIRone 5 MG TAB PO SCH ×2 (08:25→20:54)
--- NOTE | 2018-09-15 08:44 | IPNPDOC ---
Text Note Date of Service The patient was seen on 09/15/18. NOTE Subjective: Patient seen and examined at bedside. Low urine output, patient states has not been drinking to avoid urinating. Objective: General: NAD, lying comfortably in bed HEENT: NC/AT Lungs: b/l crackles lower bases Heart: +S1S2, RRR Abd: soft, NT, +BS Ext: peripheral edema b/l LE A/P 77 yo female for decompensated heart failure #HFpEF - echo noted - responded well to IV diuresis - low urine output - IV lasix x 1 today - increase daily lasix to 60 daily - I/O's, daily weights #hypokalemia - continue to follow and replete as needed - check mag #tachy-adán syndrome - s/p PPM #chronic hypoxic respiratory failure/COPD - supplemental oxygen as needed - uses 2-3L at home #JOSEF - non-compliant with CPAP #breast CA - s/p RT over 10 years ago - [facility] [place] #DLP #Gout #GERD #Depression #chronic anemia #DVT prophylaxis - heparin SC Dispo: continue PT, will need placement VS,Fishbone, I+O VS, Fishbone, I+O Laboratory Tests 09/15/18 04:41 Red Blood Count 3.47 L, Mean Corpuscular Volume 98.6 H, Mean Corpuscular H emoglobin 29.1, Mean Corpuscular Hemoglobin Concent 29.5 L, Red Cell Distribution Width 15.8 H, Neutrophils (%) (Auto) 57.5, Lymphocytes (%) (Auto) 27.8, Monocytes (%) (Auto) 10.2 H, Eosinophils (%) (Auto) 3.5 H, Basophils (%) (Auto) 0.5, Neutrophils # (Auto) 3.7, Lymphocytes # (Auto) 1.8, Monocytes # (Auto) 0.7, Eosinophils # (Auto) 0.2, Basophils # (Auto) 0.0, Calcium Level 8.7 L Vital Signs Date Time Temp Pulse Resp B/P (MAP) Pulse Ox O2 Delivery O2 Flow Rate FiO2 09/15/18 08:00 96.5 80 20 137/78 (97) 93 09/15/18 04:00 3.0 09/11/18 15:30 Nasal Cannula I&O- Last 24 Hours up to 6 AM 09/15/18 06:00 Intake Total 1000 ml Output Total 625 ml Balance 375 ml DOMINIQUE WALDEN MD September 15, 2018 08:44
[2018-09-15] MEDS ORDERED: ADVAIR HFA 115/21MCG INHALER INH SCH (09:00)
[2018-09-15] MEDS: ADVAIR HFA 115/21MCG INHALER INH SCH ×2 (09:13→19:37)
[2018-09-15] MEDS: ALBUTEROL SULFATE 2.5 MG/0.5 ML INH NEB SOLN INH PRN ×2 (09:13→13:47)
[2018-09-15] MEDS: ACETAMINOPHEN 650MG ER TAB (TYLENOL ARTHRITIS) PO PRN ×2 (10:23→18:17)
[2018-09-15 12:00] VITALS: BP 142/70
[2018-09-15 20:00] VITALS: BP 118/58
[2018-09-16] MEDS: SLF 3 ML SYR IV SCH ×3 (05:29→22:30)
[2018-09-16 06:00] VITALS: BP 131/60
[2018-09-16 07:15] LABS: BASO % 0.3 % (0.0-1.0); EOS # 0.3 10^3/uL (0.0-0.50); EOS % 5.4 % (0.0-3.0); HEMATOCRIT 31.6 % (36.0-47.0); HEMOGLOBIN 9.5 g/dl (12.0-15.5); LYMPH # 1.6 10^3/uL (1.5-4.5); LYMPH % 27.7 % (24.0-44.0); MEAN CORPUSCULAR HEMOGLOBIN 29.2 pg (27.0-33.0); MEAN CORPUSCULAR HGB CONC 30.1 g/dl (32.0-36.5); MEAN CORPUSCULAR VOLUME 97.2 fl (80.0-96.0); MONO # 0.7 10^3/uL (0.0-0.8); NEUTROPHILS # 3.1 10^3/uL (1.8-7.7); NEUTROPHILS % 54.4 % (36.0-66.0); PLATELET COUNT, AUTOMATED 175 10^3/uL (150-450); RED BLOOD COUNT 3.25 10^6/uL (4.00-5.40); WHITE BLOOD COUNT 5.8 10^3/uL (4.0-10.0)
[2018-09-16] MEDS: ACETAMINOPHEN 650MG ER TAB (TYLENOL ARTHRITIS) PO PRN (07:27)
[2018-09-16 07:34] LABS: CALCIUM LEVEL 8.6 MG/DL (8.8-10.2); CREATININE FOR GFR 1.05 MG/DL (0.55-1.30); GLOMERULAR FILTRATION RATE 53.8 (>39); POTASSIUM SERUM 3.2 MEQ/L (3.5-5.1)
[2018-09-16] MEDS: ADVAIR HFA 115/21MCG INHALER INH SCH ×2 (08:00→20:00)
[2018-09-16] MEDS: ESCITALOPRAM OXALATE 10 MG TAB (LEXAPRO) PO SCH ×2 (08:39→22:29)
[2018-09-16] MEDS: busPIRone 5 MG TAB PO SCH ×2 (08:39→22:52)
[2018-09-16] MEDS: ASPIRIN 325 MG TAB PO SCH (08:39)
[2018-09-16] MEDS: ALLOPURINOL 300 MG TAB PO SCH (08:39)
[2018-09-16] MEDS: ROSUVASTATIN 10 MG TAB (CRESTOR) PO SCH (08:39)
[2018-09-16] MEDS: SOTALOL HCL 80 MG TAB PO SCH ×2 (08:39→22:29)
[2018-09-16] MEDS: HEPARIN SOD (PORCINE) 5000 UNITS/ML VIAL SQ SCH ×2 (08:40→22:29)
[2018-09-16] MEDS: PRO AIR INH PRN (12:08)
--- NOTE | 2018-09-16 13:14 | IPNPDOC ---
Text Note Date of Service The patient was seen on 09/16/18. NOTE Subjective: Patient seen and examined at bedside. Low urine output, patient states has not been drinking to avoid urinating. Objective: General: NAD, lying comfortably in bed HEENT: NC/AT Lungs: b/l crackles lower bases Heart: +S1S2, RRR Abd: soft, NT, +BS Ext: peripheral edema b/l LE A/P 77 yo female for decompensated heart failure: #HFpEF - grossly compensated - echo noted - responded well to IV diuresis - increase daily lasix to 60 daily - I/O's, daily weights #hypokalemia - continue to follow and replete as needed - check mag #tachy-adán syndrome - s/p PPM #chronic hypoxic respiratory failure/COPD - supplemental oxygen as needed - uses 2-3L at home #JOSEF - non-compliant with CPAP #breast CA - s/p RT over 10 years ago - [facility] [place] #DLP #Gout #GERD #Depression #chronic anemia #DVT prophylaxis - heparin SC Dispo: continue PT, will need placement VS,Fishbone, I+O VS, Fishbone, I+O Laboratory Tests 09/16/18 06:56 Red Blood Count 3.25 L, Mean Corpuscular Volume 97.2 H, Mean Corpuscular Hemoglobin 29.2, Mean Corpuscular Hemoglobin Concent 30.1 L, Red Cell Distribution Width 15.6 H, Neutrophils (%) (Auto) 54.4, Lymphocytes (%) (Auto) 27.7, Monocytes (%) (Auto) 12.0 H, Eosinophils (%) (Auto) 5.4 H, Basophils (%) (Auto) 0.3, Neutrophils # (Auto) 3.1, Lymphocytes # (Auto) 1.6, Monocytes # (Auto) 0.7, Eosinophils # (Auto) 0.3, Basophils # (Auto) 0.0, Calcium Level 8.6 L Vital Signs Date Time Temp Pulse Resp B/P (MAP) Pulse Ox O2 Delivery O2 Flow Rate FiO2 09/16/18 10:59 1.0 09/16/18 08:39 74 131/60 09/16/18 06:00 96.1 18 97 09/11/18 15:30 Nasal Cannula I&O- Last 24 Hours up to 6 AM 09/16/18 06:00 Intake Total 1325 ml Output Total 1550 ml Balance -225 ml DOMINIQUE WALDEN MD September 16, 2018 13:14
[2018-09-16] MEDS: ACETAMINOPHEN 650MG ER TAB (TYLENOL ARTHRITIS) PO SCH ×2 (13:46→22:29)
[2018-09-16] MEDS: FUROSEMIDE 20 MG TAB PO SCH ×2 (13:47→13:49)
[2018-09-16 14:15] VITALS: BP 167/71
[2018-09-16 15:30] VITALS: BP 124/59
[2018-09-16 22:00] VITALS: BP 130/65
[2018-09-16] MEDS ORDERED: PILL CRUSHER/CUTTER 1 EACH XX PRN (22:45)
[2018-09-17] MEDS: SLF 3 ML SYR IV SCH ×3 (05:52→21:02)
[2018-09-17] MEDS: ACETAMINOPHEN 650MG ER TAB (TYLENOL ARTHRITIS) PO SCH ×3 (05:52→21:02)
[2018-09-17 05:57] LABS: BASO % 0.6 % (0.0-1.0); EOS # 0.3 10^3/uL (0.0-0.50); EOS % 5.5 % (0.0-3.0); HEMATOCRIT 32.7 % (36.0-47.0); HEMOGLOBIN 9.7 g/dl (12.0-15.5); LYMPH # 1.6 10^3/uL (1.5-4.5); MEAN CORPUSCULAR HEMOGLOBIN 29.3 pg (27.0-33.0); MEAN CORPUSCULAR HGB CONC 29.7 g/dl (32.0-36.5); MEAN CORPUSCULAR VOLUME 98.8 fl (80.0-96.0); MONO # 0.5 10^3/uL (0.0-0.8); MONO % 9.3 % (0.0-5.0); NEUTROPHILS # 2.8 10^3/uL (1.8-7.7); NEUTROPHILS % 53.2 % (36.0-66.0); PLATELET COUNT, AUTOMATED 189 10^3/uL (150-450); RED BLOOD COUNT 3.31 10^6/uL (4.00-5.40); WHITE BLOOD COUNT 5.3 10^3/uL (4.0-10.0)
[2018-09-17 06:00] VITALS: BP 112/57
[2018-09-17 06:17] LABS: BLOOD UREA NITROGEN 20 MG/DL (7-18); CALCIUM LEVEL 8.7 MG/DL (8.8-10.2); CARBON DIOXIDE LEVEL 39 MEQ/L (21-32); CHLORIDE LEVEL 99 MEQ/L (98-107); CREATININE FOR GFR 0.94 MG/DL (0.55-1.30); GLOMERULAR FILTRATION RATE > 60.0 (>39); GLUCOSE, FASTING 87 MG/DL (70-100); POTASSIUM SERUM 3.3 MEQ/L (3.5-5.1); SODIUM LEVEL 141 MEQ/L (136-145)
[2018-09-17] MEDS: ADVAIR HFA 115/21MCG INHALER INH SCH ×2 (07:22→20:42)
[2018-09-17] MEDS ORDERED: POTASSIUM CHLORIDE 10 MEQ SR TABLET PO ONE (08:00)
[2018-09-17] MEDS: NYSTATIN 100,000 UNITS/GM TOPICAL PWD 15 GM TOP SCH ×2 (09:00→21:02)
[2018-09-17] MEDS: SOTALOL HCL 80 MG TAB PO SCH ×2 (09:00→21:01)
[2018-09-17] MEDS: busPIRone 5 MG TAB PO SCH ×2 (09:00→21:02)
[2018-09-17] MEDS: ASPIRIN 325 MG TAB PO SCH (09:18)
[2018-09-17] MEDS: FUROSEMIDE 20 MG TAB PO SCH (09:18)
[2018-09-17] MEDS: ESCITALOPRAM OXALATE 10 MG TAB (LEXAPRO) PO SCH ×2 (09:19→21:02)
[2018-09-17] MEDS: ALLOPURINOL 300 MG TAB PO SCH (09:19)
[2018-09-17] MEDS: HEPARIN SOD (PORCINE) 5000 UNITS/ML VIAL SQ SCH ×2 (09:19→21:02)
[2018-09-17] MEDS: ROSUVASTATIN 10 MG TAB (CRESTOR) PO SCH (09:19)
[2018-09-17] MEDS: PRO AIR INH PRN (12:35)
[2018-09-17 14:00] VITALS: BP 126/61
--- NOTE | 2018-09-17 16:46 | IPN ---
DATE: 09/17/2018 SUBJECTIVE: The patient is seen and examined in the room today. The patient stated that she did not take the Lasix yesterday because she does not want to have frequent urination, but today she did take the diuretic. According to the patient, the patient sometimes would skip the diuretic at home because she was trying to prevent frequent urination. At the time of the encounter, the patient stated that her breathing is improving. The patient is status post lumpectomy and radiation therapy. OBJECTIVE: VITAL SIGNS: Temperature is 97.9, pulse 70, respirations 20, blood pressure 112/57, pulse oximetry 92% with 1 liter nasal cannula. GENERAL: The patient is alert, awake, comfortable, obese. HEENT: Normocephalic, atraumatic. Extraocular muscles are grossly intact. CARDIOVASCULAR: Positive S1, S2. Regular rate. LUNGS: Positive bilateral crackles. ABDOMEN: Soft, nontender, nondistended. Bowel sounds present. EXTREMITIES: Peripheral edema. LABORATORY DATA: WBC 5.3, hemoglobin 9.7, hematocrit 32.7, platelet count is 189. Sodium is 141, potassium 3.2, chloride is 99, carbon dioxide is 39, BUN 20, creatinine 0.94, GFR greater than 60, fasting glucose 87, calcium is 8.7. ASSESSMENT AND PLAN: 1. Diastolic congestive heart failure (CHF) exacerbation. The patient continues to demonstrate signs of fluid overload. At home, the patient may not be compliant with the diuretic because according to the patient the patient has been skipping the diuretic at home to avoid frequent urination. We will continue to monitor the patient's input and output and daily weights. 2. Tachybrady syndrome status post pacemaker placement. 3. Chronic obstructive pulmonary disease (COPD). No exacerbation at this moment. At baseline, the patient is using 2 to 3 liters of oxygen. 4. Obstructive sleep apnea, noncompliant with continuous positive airway pressure (CPAP). 5. History of breast cancer. 6. Anxiety/depression. On BuSpar and Lexapro. 7. Gout. On allopurinol. 8. Gastroesophageal reflux disease (GERD). Continue to monitor. 9. Chronic anemia. The patient is asymptomatic at this moment. Continue to monitor. 10. Deep vein thrombosis (DVT) prophylaxis. The patient is on heparin.
[2018-09-17 22:00] VITALS: BP 129/59
[2018-09-18 06:00] VITALS: BP 160/75
[2018-09-18] MEDS: SLF 3 ML SYR IV SCH (06:00)
[2018-09-18] MEDS: ACETAMINOPHEN 650MG ER TAB (TYLENOL ARTHRITIS) PO SCH (06:09)
[2018-09-18 06:15] LABS: BASO % 0.4 % (0.0-1.0); EOS # 0.3 10^3/uL (0.0-0.50); EOS % 5.4 % (0.0-3.0); HEMATOCRIT 30.5 % (36.0-47.0); HEMOGLOBIN 9.1 g/dl (12.0-15.5); LYMPH # 1.5 10^3/uL (1.5-4.5); LYMPH % 29.8 % (24.0-44.0); MEAN CORPUSCULAR HEMOGLOBIN 29.2 pg (27.0-33.0); MEAN CORPUSCULAR HGB CONC 29.8 g/dl (32.0-36.5); MEAN CORPUSCULAR VOLUME 97.8 fl (80.0-96.0); MONO # 0.6 10^3/uL (0.0-0.8); MONO % 10.9 % (0.0-5.0); NEUTROPHILS # 2.7 10^3/uL (1.8-7.7); NEUTROPHILS % 52.9 % (36.0-66.0); PLATELET COUNT, AUTOMATED 185 10^3/uL (150-450); RED BLOOD COUNT 3.12 10^6/uL (4.00-5.40)
[2018-09-18 06:37] LABS: BLOOD UREA NITROGEN 20 MG/DL (7-18); CALCIUM LEVEL 8.5 MG/DL (8.8-10.2); CARBON DIOXIDE LEVEL 36 MEQ/L (21-32); CHLORIDE LEVEL 100 MEQ/L (98-107); CREATININE FOR GFR 0.95 MG/DL (0.55-1.30); GLOMERULAR FILTRATION RATE > 60.0 (>39); GLUCOSE, FASTING 88 MG/DL (70-100); POTASSIUM SERUM 3.6 MEQ/L (3.5-5.1); SODIUM LEVEL 139 MEQ/L (136-145)
[2018-09-18] MEDS: ADVAIR HFA 115/21MCG INHALER INH SCH (07:50)
[2018-09-18] MEDS: FUROSEMIDE 100 MG/10 ML VIAL (J1940) IV ONE ×2 (08:00→08:28)
[2018-09-18] MEDS: ALLOPURINOL 300 MG TAB PO SCH (08:27)
[2018-09-18] MEDS: ESCITALOPRAM OXALATE 10 MG TAB (LEXAPRO) PO SCH (08:27)
[2018-09-18 08:28] VITALS: BP 160/75
[2018-09-18] MEDS: SOTALOL HCL 80 MG TAB PO SCH (08:28)
[2018-09-18] MEDS: ASPIRIN 325 MG TAB PO SCH (08:28)
[2018-09-18] MEDS: HEPARIN SOD (PORCINE) 5000 UNITS/ML VIAL SQ SCH (08:28)
[2018-09-18] MEDS: NYSTATIN 100,000 UNITS/GM TOPICAL PWD 15 GM TOP SCH (08:29)
[2018-09-18] MEDS: ROSUVASTATIN 10 MG TAB (CRESTOR) PO SCH (08:30)
[2018-09-18] MEDS: busPIRone 5 MG TAB PO SCH (09:39)
[2018-09-18] MEDS ORDERED: FUROSEMIDE 40 MG TAB PO ONE (10:00)
[2018-09-18] MEDS ORDERED: TORSEMIDE (DEMADEX) 50 MG PER 1/2 TAB PO ONE (11:00)
--- NOTE | 2018-09-18 22:09 | DSES ---
DATE OF ADMISSION: 09/11/2018 DATE OF DISCHARGE: 09/18/2018 PRIMARY CARE PROVIDER: Lizett Hernandez DO CONSULTANTS: None. PROCEDURES: None. DISCHARGE DIAGNOSES: 1. Diastolic congestive heart failure exacerbation. 2. Tachybrady syndrome status post pacemaker placement. 3. Chronic obstructive pulmonary disease (COPD). 4. Obstructive sleep apnea, noncompliant with continuous positive airway pressure (CPAP). 5. History of breast cancer. 6. Anxiety/depression. 7. Gout. 8. Gastroesophageal reflux disease. 9. Chronic anemia. 10. Medication noncompliance. HOSPITALIZATION COURSE: The patient is a 77-year-old female who presented to [facility] on 09/11/2018 with complaint of (cut off). Patient developed shortness of breath after a week of noncompliance with diuretic therapy. Patient is admitted under hospitalist service for congestive heart failure exacerbation. Patient is started on IV Lasix. With IV diuretic patient stated her breathing is improving, however patient continued to have difficulty with activities. Later, echo report was found to have heart failure with preserved ejection fraction (EF). Later, patient's diuretic was adjusted from IV to by mouth, dosage adjusted based on patient's clinical picture. Patient 's respiratory status continued to improve. On 09/18/2018, patient's respiratory status is approaching her baseline and patient is discharged to [facility] for subacute rehabilitation. VITAL SIGNS: On discharge: Temperature 97.8, pulse 68, respiratory rate 18, blood pressure 160/75, pulse oximetry 95% with 2 liters oxygen. LABORATORY DATA: On date of discharge: WBC 5, hemoglobin 9.1, hematocrit 30.5, platelet count 185, sodium 139, potassium 3.6, chloride 100, carbon dioxide 36, BUN 20, creatinine 0.95, GFR greater than 60, fasting glucose 88, calcium 8.5. IMAGING STUDIES: Chest x-ray showed cardiomegaly and vascular congestion. DISCHARGE MEDICATIONS: - Tylenol 650 mg by mouth every 8 hours as needed - albuterol 2.5 mg inhalation every 4 hours as needed for shortness of breath - allopurinol 300 mg by mouth daily - aspirin 325 mg by mouth daily - Combigan one drop both eyes twice a day - buspirone 2.5 mg by mouth twice a day - Dexilant 60 mg by mouth daily - escitalopram 10 mg by mouth twice a day - Lasix 40 mg by mouth daily - potassium chloride 40 mEq by mouth three times a day - rosuvastatin 10 mg by mouth daily - Advair one puff inhalation twice a day - sotalol 80 mg by mouth twice a day DISCHARGE INSTRUCTIONS: Discontinue lines. Discharge patient to [facility] for continued subacute rehabilitation. Activity as tolerated. Low salt diet as tolerated. Patient should followup with 1.8 liters fluid restriction. Patient is admitted to hospital due to noncompliance for diuretic therapy. Patient stated she understands the importance of fluid restriction and patient should follow the diuretic on a daily basis and patient is instructed to measure daily weight. Patient should notify the healthcare provider if there is significant weight loss or weight gain. DISCHARGE CONDITION: Fair. DISCHARGE TIME: Greater than 30 minutes.
== END 2018-09-18 10:56 | DRG 292 ==
LOC: M ED 10:31 → EDBD 10:31 → M ED INP 13:26 → M PCU 15:32 → M MS4PR 09-15 15:50 → M MSPAV 09-16 15:29
PROVIDERS: ADMIT Internal Medicine; ATTEND Internal Medicine
DX: I50.33 Acute on chronic diastolic (congestive) heart failure (principal); J96.11 Chronic respiratory failure with hypoxia; D50.9 Iron deficiency anemia, unspecified; E78.5 Hyperlipidemia, unspecified; J44.9 Chronic obstructive pulmonary disease, unspecified; E87.6 Hypokalemia; M10.9 Gout, unspecified; G47.33 Obstructive sleep apnea (adult) (pediatric); F32.9 Major depressive disorder, single episode, unspecified; F41.9 Anxiety disorder, unspecified; Z85.3 Personal history of malignant neoplasm of breast; Z79.82 Long term (current) use of aspirin; Z79.899 Other long term (current) drug therapy; Z88.2 Allergy status to sulfonamides; Z88.8 Allergy status to other drugs, medicaments and biological substances; Z95.0 Presence of cardiac pacemaker; Z91.19 Patient's noncompliance with other medical treatment and regimen; Z91.14 Patient's other noncompliance with medication regimen

== ENCOUNTER → 2018-09-27 | Outpatient (REF) | payer MEDICARE, MEDICAID ==
[~2018-09-27] MED LIST changes: +ASPI1TAB20 PO; +AYRGEL; +BUSP5TA PO; +HM S0.65 NARES
== END ==
LOC: SKLAB7 18:49
PROVIDERS: ATTEND Internal Medicine
DX: R82.90 Unspecified abnormal findings in urine (principal)

== ENCOUNTER → 2018-09-30 | Outpatient (REF) ==
[2018-09-30 15:05] LABS: APPEARANCE, URINE CLEAR (CLEAR); BACTERIA, URINE AUTO 1+ (NEGATIVE); BILIRUBIN, URINE AUTO NEGATIVE (NEGATIVE); BLOOD, URINE BLOOD NEGATIVE (NEGATIVE); COLOR, URINE STRAW (YELLOW); GLUCOSE, URINE (UA) AUTO NEGATIVE (NEGATIVE); KETONE, URINE AUTO NEGATIVE (NEGATIVE); LEUKOCYTE ESTERASE, URINE AUTO 3+ (NEGATIVE); MUCUS, URINE SMALL (NEGATIVE); NITRITE, URINE AUTO NEGATIVE (NEGATIVE); PROTEIN, URINE AUTO NEGATIVE (NEGATIVE); RBC, URINE AUTO 4 /HPF (0-3); SPECIFIC GRAVITY URINE AUTO 1.009 (1.002-1.035); SQUAMOUS EPITHELIAL CELL UR AU 2 /HPF (0-6); UROBILINOGEN, URINE AUTO 0.2 mg/dL (0.0-2.0); WBC, URINE AUTO 97 /HPF (0-3)
== END ==
LOC: SKLAB7 14:02
PROVIDERS: ATTEND Internal Medicine
DX: R30.0 Dysuria (principal)

== ENCOUNTER → 2018-10-17 | Outpatient (REF) | payer MEDICARE, MEDICAID ==
[2018-10-17 07:51] LABS: BLOOD UREA NITROGEN 22 MG/DL (7-18); CALCIUM LEVEL 8.9 MG/DL (8.8-10.2); CARBON DIOXIDE LEVEL 35 MEQ/L (21-32); CHLORIDE LEVEL 100 MEQ/L (98-107); CREATININE FOR GFR 0.87 MG/DL (0.55-1.30); GLOMERULAR FILTRATION RATE > 60.0 (>39); GLUCOSE, FASTING 96 MG/DL (70-100); POTASSIUM SERUM 4.1 MEQ/L (3.5-5.1); SODIUM LEVEL 140 MEQ/L (136-145)
== END ==
LOC: SKLAB7 07:00
PROVIDERS: ATTEND Internal Medicine
DX: Z79.899 Other long term (current) drug therapy (principal)

== ENCOUNTER → 2019-05-29 | Outpatient (REF) | payer MEDICARE, MEDICAID ==
[~2019-05-29] MED LIST changes: -ASPI1TAB20 PO; +ASPI325T57 PO; -DULO1CAP2 PO; +DULO1CAP5 PO; -ROSU10TA5; -ROSU10TA5 PO; +ROSU10TA6; +ROSU10TA6 PO
[2019-05-29 09:14] LABS: HEMATOCRIT 36.6 % (36.0-47.0); HEMOGLOBIN 10.4 g/dl (12.0-15.5); MEAN CORPUSCULAR HEMOGLOBIN 28.7 pg (27.0-33.0); MEAN CORPUSCULAR HGB CONC 28.4 g/dl (32.0-36.5); MEAN CORPUSCULAR VOLUME 101.1 fl (80.0-96.0); PLATELET COUNT, AUTOMATED 142 10^3/uL (150-450); RED BLOOD COUNT 3.62 10^6/uL (4.00-5.40); WHITE BLOOD COUNT 6.8 10^3/uL (4.0-10.0)
[2019-05-29 09:44] LABS: ALBUMIN 3.1 GM/DL (3.2-5.2); ALT/SGPT 15 U/L (12-78); BILIRUBIN,TOTAL 0.4 MG/DL (0.2-1.0); BLOOD UREA NITROGEN 19 MG/DL (7-18); CALCIUM LEVEL 8.7 MG/DL (8.8-10.2); CARBON DIOXIDE LEVEL 34 MEQ/L (21-32); CHLORIDE LEVEL 102 MEQ/L (98-107); CHOLESTEROL LEVEL 143 MG/DL (<200); CREATININE FOR GFR 0.93 MG/DL (0.55-1.30); GLOMERULAR FILTRATION RATE > 60.0 (>32); GLUCOSE, FASTING 76 MG/DL (70-100); HDL CHOLESTEROL 50 MG/DL (>40); LDL CHOLESTEROL 60 MG/DL (<100); NON-HDL-C 93 MG/DL; POTASSIUM SERUM 4.2 MEQ/L (3.5-5.1); SODIUM LEVEL 141 MEQ/L (136-145); TOTAL PROTEIN 7.4 GM/DL (6.4-8.2); TRIGLYCERIDES LEVEL 166 MG/DL (<150)
== END ==
LOC: SKLAB7 09:15
PROVIDERS: ATTEND Internal Medicine
DX: I48.91 Unspecified atrial fibrillation (principal); E78.5 Hyperlipidemia, unspecified; Z79.01 Long term (current) use of anticoagulants

== ENCOUNTER → 2019-09-25 | Outpatient (REF) | LOC: SKLAB7 08:50 | PROVIDERS: ATTEND Internal Medicine | DX: Z03.818 Encounter for observation for suspected exposure to other biological agents ruled out (principal) ==

== ENCOUNTER → 2019-10-30 | Outpatient (REF) | payer MEDICARE, MEDICAID ==
[2019-10-30 09:48] LABS: HEMATOCRIT 35.6 % (36.0-47.0); HEMOGLOBIN 10.4 g/dl (12.0-15.5); MEAN CORPUSCULAR HEMOGLOBIN 29.2 pg (27.0-33.0); MEAN CORPUSCULAR HGB CONC 29.2 g/dl (32.0-36.5); PLATELET COUNT, AUTOMATED 206 10^3/uL (150-450); RED BLOOD COUNT 3.56 10^6/uL (4.00-5.40); WHITE BLOOD COUNT 6.4 10^3/uL (4.0-10.0)
[2019-10-30 10:24] LABS: ALBUMIN 3.1 GM/DL (3.2-5.2); ALT/SGPT 12 U/L (12-78); BILIRUBIN,TOTAL 0.4 MG/DL (0.2-1.0); BLOOD UREA NITROGEN 17 MG/DL (7-18); CALCIUM LEVEL 8.8 MG/DL (8.8-10.2); CARBON DIOXIDE LEVEL 34 MEQ/L (21-32); CHLORIDE LEVEL 100 MEQ/L (98-107); CHOLESTEROL LEVEL 131 MG/DL (<200); CHOLESTEROL RISK RATIO 2.787 (<5); CREATININE FOR GFR 0.87 MG/DL (0.55-1.30); GLOMERULAR FILTRATION RATE > 60.0 (>32); GLUCOSE, FASTING 98 MG/DL (70-100); HDL CHOLESTEROL 47 MG/DL (>40); LDL CHOLESTEROL 48 MG/DL (<100); NON-HDL-C 84 MG/DL; POTASSIUM SERUM 4.1 MEQ/L (3.5-5.1); SODIUM LEVEL 141 MEQ/L (136-145); TOTAL PROTEIN 7.1 GM/DL (6.4-8.2); TRIGLYCERIDES LEVEL 179 MG/DL (<150)
== END ==
LOC: SKLAB7 07:00
PROVIDERS: ATTEND Internal Medicine
DX: I48.91 Unspecified atrial fibrillation (principal); J44.9 Chronic obstructive pulmonary disease, unspecified; E78.5 Hyperlipidemia, unspecified; Z79.01 Long term (current) use of anticoagulants

== ENCOUNTER → 2019-12-10 | Outpatient (CLI) | payer MEDICARE, MEDICAID ==
[~2019-12-10] MED LIST changes: +ACET650T61 PO; -TYLE650T35 PO
== END ==
LOC: M RAD 13:21
PROVIDERS: ATTEND Internal Medicine
DX: R05 Cough (principal); I51.7 Cardiomegaly; Z95.0 Presence of cardiac pacemaker

== ENCOUNTER → 2019-12-11 | Outpatient (REF) | payer MEDICARE, MEDICAID ==
[2020-01-23 10:43] LABS: HEMATOCRIT 31.9 % (36.0-47.0); HEMOGLOBIN 9.4 g/dl (12.0-15.5); MEAN CORPUSCULAR HEMOGLOBIN 29.4 pg (27.0-33.0); MEAN CORPUSCULAR HGB CONC 29.5 g/dl (32.0-36.5); MEAN CORPUSCULAR VOLUME 99.7 fl (80.0-96.0); PLATELET COUNT, AUTOMATED 230 10^3/uL (150-450); WHITE BLOOD COUNT 7.8 10^3/uL (4.0-10.0)
[2020-01-23 11:15] LABS: APPEARANCE, URINE CLEAR (CLEAR); BACTERIA, URINE AUTO NEGATIVE (NEGATIVE); BILIRUBIN, URINE AUTO NEGATIVE (NEGATIVE); BLOOD, URINE BLOOD NEGATIVE (NEGATIVE); COLOR, URINE YELLOW (YELLOW); GLUCOSE, URINE (UA) AUTO NEGATIVE (NEGATIVE); KETONE, URINE AUTO NEGATIVE (NEGATIVE); LEUKOCYTE ESTERASE, URINE AUTO NEGATIVE (NEGATIVE); MUCUS, URINE SMALL (NEGATIVE); NITRITE, URINE AUTO NEGATIVE (NEGATIVE); PROTEIN, URINE AUTO NEGATIVE (NEGATIVE); RBC, URINE AUTO 1 /HPF (0-3); SPECIFIC GRAVITY URINE AUTO 1.016 (1.002-1.035); SQUAMOUS EPITHELIAL CELL UR AU 0 /HPF (0-6); UROBILINOGEN, URINE AUTO 0.2 mg/dL (0.0-2.0); WBC, URINE AUTO 0 /HPF (0-3)
[2020-01-26 08:36] LABS: ALBUMIN 2.8 GM/DL (3.2-5.2); BILIRUBIN,TOTAL 0.4 MG/DL (0.2-1.0); CALCIUM LEVEL 8.7 MG/DL (8.8-10.2); CREATININE FOR GFR 1.08 MG/DL (0.55-1.30); GLOMERULAR FILTRATION RATE 51.8 (>32); POTASSIUM SERUM 4.2 MEQ/L (3.5-5.1); TOTAL PROTEIN 7.3 GM/DL (6.4-8.2)
== END ==
LOC: SKLAB7 07:00
DX: I48.91 Unspecified atrial fibrillation (principal)

== ENCOUNTER → 2020-01-07 | Outpatient (REF) | payer MEDICARE, MEDICAID ==
--- NOTE | 2020-02-03 15:35 | ECGEPIP ---
[facility] Test Date: 2020-01-07 Pat Name: DAVID MIRAMONTES Department: Room: 716 Gender: Female Health Consultant: : 1940 Requested By: Order Number: [id number] Reading MD: Trena Narvaez Measurements Intervals [place] Rate: 77 P: IA: 0 QRS: 122 QRSD: 148 T: 87 QT: 434 QTc: 493 Interpretive Statements ELECTRONIC VENTRICULAR PACEMAKER ABNORMAL RHYTHM ECG UNDERLYING A-FIB, RIGHT AXIS ? LEAD SWITCH UNUSUAL AXIS FOR RIGHT VENTRICULAR PACER ? BIVENTRICULAR DEVICE SEE SCANNED DOWNTIME REPORT
== END ==
LOC: SKLAB7 10:56
DX: J98.9 Respiratory disorder, unspecified (principal)

== ENCOUNTER → 2020-03-02 | Outpatient (REF) | payer MEDICARE, MEDICAID ==
--- NOTE | 2020-03-05 13:49 | NOCOX ---
DATE: 03/02/2020 The study was performed on room air. A total valid sampling time was approximately 9 hours and 18 minutes. The time spent with an O2 saturation less than 88% was 1 hour and 14 minutes. The patient's O2 saturation ranged from a high of 99 to a low of 63%. The heart rate ranged from a high of 104 to a low of 42. Graphically the patient was noted to have episodes of desaturation. There was some patterning suspicious for Nikolai-Pires respiration. There was some significant heart rate variability noted overnight as well. IMPRESSION: Abnormal nocturnal oximetry study. The patient does qualify for nasal cannula oxygen supplementation. Graphically there was significant O2 saturation variability noted with some sawtoothing pattern as well as heart rate variability. There were also some patterns as well suggestive of Nikolai-Pires respiration. If there is a clinical concern for sleep-disordered breathing, would refer for in-lab sleep testing. [facility]
== END ==
LOC: SKLAB7 11:12
DX: J98.4 Other disorders of lung (principal)

== ENCOUNTER → 2020-03-25 | Outpatient (REF) ==
[2020-03-26 08:19] LABS: INFLUENZA A AMPLIFICATION NEGATIVE (NEGATIVE); INFLUENZA B AMPLIFICATION NEGATIVE (NEGATIVE)
== END ==
LOC: SKLAB7 14:30
DX: Z20.828 Contact with and (suspected) exposure to other viral communicable diseases (principal)

== ENCOUNTER → 2020-03-31 | Outpatient (REF) | payer MEDICARE, MEDICAID ==
[~2020-03-31] MED LIST changes: +ESCI10TA16 PO; -ESCI10TA2 PO
== END ==
LOC: SKLAB7 03-30 15:07 → EDSTATUS 05-07 08:57
DX: Z20.828 Contact with and (suspected) exposure to other viral communicable diseases (principal)

== ENCOUNTER → 2020-04-07 | Outpatient (REF) | payer MEDICARE, MEDICAID | LOC: SKLAB7 08:00 | PROVIDERS: ATTEND Internal Medicine | DX: Z20.828 Contact with and (suspected) exposure to other viral communicable diseases (principal) ==

== ENCOUNTER → 2020-04-14 | Outpatient (REF) | payer MEDICARE, MEDICAID | LOC: SKLAB7 08:00 | PROVIDERS: ATTEND Internal Medicine | DX: Z20.828 Contact with and (suspected) exposure to other viral communicable diseases (principal) ==

== ENCOUNTER → 2020-04-17 | Outpatient (REF) | payer MEDICARE, MEDICAID | LOC: SKLAB7 08:00 | PROVIDERS: ATTEND Internal Medicine | DX: Z20.828 Contact with and (suspected) exposure to other viral communicable diseases (principal) ==

== ENCOUNTER → 2020-04-21 | Outpatient (REF) | payer MEDICARE, MEDICAID ==
[~2020-04-21] MED LIST changes: -ESCI10TA16 PO; +ESCI10TA2 PO
== END ==
LOC: SKLAB7 08:41
DX: Z20.828 Contact with and (suspected) exposure to other viral communicable diseases (principal)

== ENCOUNTER → 2020-04-22 | Outpatient (REF) | payer MEDICARE, MEDICAID ==
[2020-04-22 09:06] LABS: HEMATOCRIT 36.4 % (36.0-47.0); HEMOGLOBIN 10.4 g/dl (12.0-15.5); MEAN CORPUSCULAR HEMOGLOBIN 29.1 pg (27.0-33.0); MEAN CORPUSCULAR HGB CONC 28.6 g/dl (32.0-36.5); PLATELET COUNT, AUTOMATED 193 10^3/uL (150-450); RED BLOOD COUNT 3.57 10^6/uL (4.00-5.40); WHITE BLOOD COUNT 5.5 10^3/uL (4.0-10.0)
[2020-04-22 09:36] LABS: ALBUMIN 2.9 GM/DL (3.2-5.2); ALT/SGPT 10 U/L (12-78); BILIRUBIN,TOTAL 0.5 MG/DL (0.2-1.0); BLOOD UREA NITROGEN 16 MG/DL (7-18); CALCIUM LEVEL 8.7 MG/DL (8.8-10.2); CARBON DIOXIDE LEVEL 35 MEQ/L (21-32); CHLORIDE LEVEL 103 MEQ/L (98-107); CHOLESTEROL LEVEL 118 MG/DL (<200); CHOLESTEROL RISK RATIO 2.185 (<5); CREATININE FOR GFR 0.91 MG/DL (0.55-1.30); GLOMERULAR FILTRATION RATE > 60.0 (>32); GLUCOSE, FASTING 83 MG/DL (70-100); HDL CHOLESTEROL 54 MG/DL (>40); LDL CHOLESTEROL 34 MG/DL (<100); NON-HDL-C 64 MG/DL; POTASSIUM SERUM 3.7 MEQ/L (3.5-5.1); SODIUM LEVEL 143 MEQ/L (136-145); TOTAL PROTEIN 7.1 GM/DL (6.4-8.2); TRIGLYCERIDES LEVEL 152 MG/DL (<150)
== END ==
LOC: SKLAB7 07:00
DX: I48.91 Unspecified atrial fibrillation (principal); E78.5 Hyperlipidemia, unspecified; F32.9 Major depressive disorder, single episode, unspecified

== ENCOUNTER → 2020-04-28 | Outpatient (REF) | payer MEDICARE, MEDICAID | LOC: SKLAB7 07:00 | DX: Z20.828 Contact with and (suspected) exposure to other viral communicable diseases (principal) ==

== ENCOUNTER → 2020-05-05 | Outpatient (REF) | payer MEDICARE, MEDICAID | LOC: SKLAB7 07:00 | DX: Z20.828 Contact with and (suspected) exposure to other viral communicable diseases (principal) ==

== ENCOUNTER → 2020-05-12 | Outpatient (REF) | payer MEDICARE, MEDICAID | LOC: SKLAB7 09:01 | DX: Z20.828 Contact with and (suspected) exposure to other viral communicable diseases (principal) ==

== ENCOUNTER → 2020-05-19 | Outpatient (REF) | payer MEDICARE, MEDICAID | LOC: SKLAB7 15:17 | PROVIDERS: ATTEND Internal Medicine | DX: Z11.52 Encounter for screening for COVID-19 (principal) ==

== ENCOUNTER → 2020-05-26 | Outpatient (REF) | payer MEDICARE, MEDICAID ==
[~2020-05-26] MED LIST changes: +ESCI10TA16 PO; -ESCI10TA2 PO
== END ==
LOC: SKLAB7 11:00
PROVIDERS: ATTEND Internal Medicine
DX: Z11.52 Encounter for screening for COVID-19 (principal)

== ENCOUNTER → 2020-06-02 | Outpatient (REF) | payer MEDICARE, MEDICAID | LOC: SKLAB7 13:21 | PROVIDERS: ATTEND Internal Medicine | DX: Z11.52 Encounter for screening for COVID-19 (principal) ==

== ENCOUNTER → 2020-06-03 | Outpatient (REF) | payer MEDICARE, MEDICAID ==
[2020-06-03 09:32] LABS: ALBUMIN 3.2 GM/DL (3.2-5.2); BILIRUBIN,TOTAL 0.5 MG/DL (0.2-1.0); CALCIUM LEVEL 9.6 MG/DL (8.8-10.2); CREATININE FOR GFR 1.03 MG/DL (0.55-1.30); GLOMERULAR FILTRATION RATE 54.7 (>32); TOTAL PROTEIN 7.9 GM/DL (6.4-8.2)
== END ==
LOC: SKLAB7 10:21
DX: I48.91 Unspecified atrial fibrillation (principal); N18.9 Chronic kidney disease, unspecified; I50.9 Heart failure, unspecified

== ENCOUNTER → 2020-06-09 | Outpatient (REF) | payer MEDICARE, MEDICAID | LOC: SKLAB7 10:14 | PROVIDERS: ATTEND Internal Medicine | DX: Z20.822 Contact with and (suspected) exposure to COVID-19 (principal) ==

== ENCOUNTER → 2020-06-16 | Outpatient (REF) | payer MEDICARE, MEDICAID | LOC: SKLAB7 14:16 | PROVIDERS: ATTEND Internal Medicine | DX: Z20.822 Contact with and (suspected) exposure to COVID-19 (principal) ==

== ENCOUNTER → 2020-06-23 | Outpatient (REF) | payer MEDICARE, MEDICAID | LOC: SKLAB7 11:26 | PROVIDERS: ATTEND Internal Medicine | DX: Z20.822 Contact with and (suspected) exposure to COVID-19 (principal) ==

== ENCOUNTER → 2020-06-30 | Outpatient (REF) | payer MEDICARE, MEDICAID | LOC: SKLAB7 09:14 | PROVIDERS: ATTEND Internal Medicine | DX: Z20.822 Contact with and (suspected) exposure to COVID-19 (principal) ==

== ENCOUNTER → 2020-07-07 | Outpatient (REF) | payer MEDICARE, MEDICAID | LOC: SKLAB7 14:39 | PROVIDERS: ATTEND Internal Medicine | DX: Z20.822 Contact with and (suspected) exposure to COVID-19 (principal) ==

== ENCOUNTER → 2020-07-21 | Outpatient (REF) | payer MEDICARE, MEDICAID | LOC: SKLAB7 10:31 | PROVIDERS: ATTEND Internal Medicine | DX: Z20.822 Contact with and (suspected) exposure to COVID-19 (principal) ==

== ENCOUNTER → 2020-07-28 | Outpatient (REF) | payer MEDICARE, MEDICAID | LOC: SKLAB7 12:35 | PROVIDERS: ATTEND Internal Medicine | DX: Z20.822 Contact with and (suspected) exposure to COVID-19 (principal) ==

== ENCOUNTER → 2020-08-13 | Outpatient (REF) | payer MEDICARE, MEDICAID | LOC: SKLAB7 20:00 | PROVIDERS: ATTEND Internal Medicine | DX: Z20.822 Contact with and (suspected) exposure to COVID-19 (principal) ==

== ENCOUNTER → 2020-10-28 | Outpatient (REF) | payer MEDICARE, MEDICAID ==
[~2020-10-28] MED LIST changes: +FERR324T21 PO; -FERR325T16 PO
[2020-10-28 09:40] LABS: HEMATOCRIT 35.2 % (36.0-47.0); HEMOGLOBIN 10.2 g/dl (12.0-15.5); MEAN CORPUSCULAR HEMOGLOBIN 29.5 pg (27.0-33.0); MEAN CORPUSCULAR VOLUME 101.7 fl (80.0-96.0); PLATELET COUNT, AUTOMATED 204 10^3/uL (150-450); RED BLOOD COUNT 3.46 10^6/uL (4.00-5.40); WHITE BLOOD COUNT 6.7 10^3/uL (4.0-10.0)
[2020-10-28 09:59] LABS: ALBUMIN 3.1 GM/DL (3.2-5.2); ALT/SGPT 12 U/L (12-78); BILIRUBIN,TOTAL 0.4 MG/DL (0.2-1.0); BLOOD UREA NITROGEN 18 MG/DL (7-18); CALCIUM LEVEL 9.3 MG/DL (8.8-10.2); CARBON DIOXIDE LEVEL 36 MEQ/L (21-32); CHLORIDE LEVEL 102 MEQ/L (98-107); CHOLESTEROL LEVEL 134 MG/DL (<200); CHOLESTEROL RISK RATIO 2.734 (<5); CREATININE FOR GFR 0.91 MG/DL (0.55-1.30); GLOMERULAR FILTRATION RATE > 60.0 (>32); GLUCOSE, FASTING 84 MG/DL (70-100); HDL CHOLESTEROL 49 MG/DL (>40); LDL CHOLESTEROL 50 MG/DL (<100); NON-HDL-C 85 MG/DL; POTASSIUM SERUM 3.6 MEQ/L (3.5-5.1); SODIUM LEVEL 142 MEQ/L (136-145); TOTAL PROTEIN 7.3 GM/DL (6.4-8.2); TRIGLYCERIDES LEVEL 173 MG/DL (<150)
== END ==
LOC: SKLAB7 07:00
DX: I48.91 Unspecified atrial fibrillation (principal); E78.5 Hyperlipidemia, unspecified; Z79.01 Long term (current) use of anticoagulants

== ENCOUNTER → 2020-11-11 | Outpatient (REF) | payer MEDICARE, MEDICAID ==
[2020-11-11 10:17] LABS: PERCENT SATURATION 17.1 % (13.2-45.0)
[2020-11-11 11:49] LABS: FOLATE 7.4 NG/ML (>5.4)
== END ==
LOC: SKLAB7 07:15
DX: D64.9 Anemia, unspecified (principal)

== ENCOUNTER → 2021-01-27 | Outpatient (REF) | payer MEDICARE, MEDICAID ==
[~2021-01-27] MED LIST changes: -KLOR20TA42 PO; +POTA-141 PO
[2021-01-27 10:38] LABS: CALCIUM LEVEL 9.3 MG/DL (8.8-10.2); PHOSPHORUS LEVEL 3.9 MG/DL (2.5-4.9)
[2021-01-27 10:49] LABS: PTH INTACT 92.3 PG/ML (18.5-88.0)
== END ==
LOC: SKLAB7 07:00
PROVIDERS: ATTEND Internal Medicine
DX: N18.9 Chronic kidney disease, unspecified (principal); Z79.899 Other long term (current) drug therapy

== ENCOUNTER → 2021-03-01 | Outpatient (REF) | payer MEDICARE, MEDICAID | LOC: SKLAB7 10:11 | PROVIDERS: ATTEND Internal Medicine | DX: Z20.822 Contact with and (suspected) exposure to COVID-19 (principal) ==

== ENCOUNTER → 2021-03-03 | Outpatient (REF) | payer MEDICARE, MEDICAID | LOC: SKLAB7 06:19 | PROVIDERS: ATTEND Internal Medicine | DX: Z20.822 Contact with and (suspected) exposure to COVID-19 (principal) ==

== ENCOUNTER → 2021-03-07 | Outpatient (REF) | payer MEDICARE, MEDICAID | LOC: SKLAB7 09:00 | PROVIDERS: ATTEND Internal Medicine | DX: Z20.822 Contact with and (suspected) exposure to COVID-19 (principal) ==

== ENCOUNTER → 2021-03-10 | Outpatient (REF) | payer MEDICARE, MEDICAID | LOC: SKLAB7 07:43 | PROVIDERS: ATTEND Internal Medicine | DX: Z20.822 Contact with and (suspected) exposure to COVID-19 (principal) ==

== ENCOUNTER → 2021-03-14 | Outpatient (REF) | payer MEDICARE, MEDICAID | LOC: SKLAB7 08:16 | PROVIDERS: ATTEND Internal Medicine | DX: Z20.822 Contact with and (suspected) exposure to COVID-19 (principal) ==

== ENCOUNTER → 2021-03-17 | Outpatient (REF) | payer MEDICARE, MEDICAID | LOC: SKLAB7 06:09 | PROVIDERS: ATTEND Internal Medicine | DX: Z20.822 Contact with and (suspected) exposure to COVID-19 (principal) ==

== ENCOUNTER → 2021-03-23 | Outpatient (REF) | payer MEDICARE, MEDICAID | LOC: SKLAB7 05:47 | PROVIDERS: ATTEND Internal Medicine | DX: Z20.822 Contact with and (suspected) exposure to COVID-19 (principal) ==

== ENCOUNTER → 2021-03-30 | Outpatient (REF) | payer MEDICARE, MEDICAID | LOC: SKLAB7 09:54 | PROVIDERS: ATTEND Internal Medicine | DX: Z20.822 Contact with and (suspected) exposure to COVID-19 (principal) ==

== ENCOUNTER → 2021-04-20 | Outpatient (REF) | payer MEDICARE, MEDICAID | LOC: SKLAB7 13:43 | PROVIDERS: ATTEND Internal Medicine | DX: Z20.822 Contact with and (suspected) exposure to COVID-19 (principal) ==

== ENCOUNTER → 2021-04-25 | Outpatient (REF) | payer MEDICARE, MEDICAID ==
--- NOTE | 2021-04-25 14:11 | REP ---
INDICATION: SOB. COMPARISON: 12/10/2019 TECHNIQUE: Portable FINDINGS: The technique utilized in obtaining the radiograph has magnified the cardiac silhouette and attenuated the interstitial markings. There is global cardiomegaly accentuated by technique. There is evidence of interstitial fibrotic change accentuated by technique. No acute patchy parenchymal opacities or pleural effusions seem to have developed. There is no change in a pacemaker device. There is no change in the osseous structures. IMPRESSION: Stable appearing chronic changes. <Electronically signed by Nico Arroyo > 04/25/21 [id number]
== END ==
LOC: SKLAB3 11:52
PROVIDERS: ATTEND Internal Medicine
DX: R06.02 Shortness of breath (principal); I51.7 Cardiomegaly; Z95.0 Presence of cardiac pacemaker

== ENCOUNTER → 2021-04-27 | Outpatient (REF) | payer MEDICARE, MEDICAID | LOC: SKLAB7 15:00 | PROVIDERS: ATTEND Internal Medicine | DX: Z20.822 Contact with and (suspected) exposure to COVID-19 (principal) ==

== ENCOUNTER → 2021-04-28 | Outpatient (REF) | payer MEDICARE, MEDICAID ==
[2021-04-28 09:13] LABS: HEMATOCRIT 34.5 % (36.0-47.0); HEMOGLOBIN 10.1 g/dl (12.0-15.5); MEAN CORPUSCULAR HEMOGLOBIN 29.8 pg (27.0-33.0); MEAN CORPUSCULAR HGB CONC 29.3 g/dl (32.0-36.5); MEAN CORPUSCULAR VOLUME 101.8 fl (80.0-96.0); PLATELET COUNT, AUTOMATED 214 10^3/uL (150-450); RED BLOOD COUNT 3.39 10^6/uL (4.00-5.40); WHITE BLOOD COUNT 6.3 10^3/uL (4.0-10.0)
[2021-04-28 09:44] LABS: ALBUMIN 2.5 GM/DL (3.2-5.2); BILIRUBIN,TOTAL 0.5 MG/DL (0.2-1.0); CALCIUM LEVEL 8.9 MG/DL (8.8-10.2); CHOLESTEROL RISK RATIO 2.254 (<5); CREATININE FOR GFR 1.08 MG/DL (0.55-1.30); GLOMERULAR FILTRATION RATE 51.7 (>32); PHOSPHORUS LEVEL 3.4 MG/DL (2.5-4.9); POTASSIUM SERUM 3.7 MEQ/L (3.5-5.1); TOTAL PROTEIN 6.8 GM/DL (6.4-8.2)
[2021-04-28 09:53] LABS: PTH INTACT 86.3 PG/ML (18.5-88.0); TOTAL 25(OH) VITAMIN D 34.1 NG/ML (30.0-100.0)
== END ==
LOC: SKLAB7 09:16
PROVIDERS: ATTEND Internal Medicine
DX: I48.91 Unspecified atrial fibrillation (principal); Z79.01 Long term (current) use of anticoagulants; E78.5 Hyperlipidemia, unspecified; Z79.899 Other long term (current) drug therapy

== ENCOUNTER → 2021-05-04 | Outpatient (REF) | payer MEDICARE, MEDICAID | LOC: SKLAB7 07:00 | PROVIDERS: ATTEND Internal Medicine | DX: Z20.822 Contact with and (suspected) exposure to COVID-19 (principal) ==

== ENCOUNTER → 2021-05-11 | Outpatient (REF) | payer MEDICARE, MEDICAID | LOC: SKLAB7 10:26 | PROVIDERS: ATTEND Internal Medicine | DX: Z20.822 Contact with and (suspected) exposure to COVID-19 (principal) ==

== ENCOUNTER → 2021-05-18 | Outpatient (REF) | payer MEDICARE, MEDICAID | LOC: SKLAB7 09:33 | PROVIDERS: ATTEND Internal Medicine | DX: Z20.822 Contact with and (suspected) exposure to COVID-19 (principal) ==

== ENCOUNTER → 2021-08-18 | Outpatient (REF) | payer MEDICARE, MEDICAID ==
[~2021-08-18] MED LIST changes: +POTA-151; -POTA20TA6
== END ==
LOC: SKLAB7 19:02
PROVIDERS: ATTEND Internal Medicine
DX: R19.7 Diarrhea, unspecified (principal); Z53.9 Procedure and treatment not carried out, unspecified reason

== ENCOUNTER → 2021-08-18 | Outpatient (REF) | payer MEDICARE, MEDICAID | LOC: SKLAB4 10:08 | PROVIDERS: ATTEND Internal Medicine | DX: R06.02 Shortness of breath (principal); I51.7 Cardiomegaly ==

== ENCOUNTER → 2021-11-03 | Outpatient (REF) | payer MEDICARE, MEDICAID ==
[~2021-11-03] MED LIST changes: +ALBU2.5V10 INH; -ALBU83IN INH
[2021-11-03 07:39] LABS: HEMATOCRIT 34.5 % (36.0-47.0); HEMOGLOBIN 10.3 g/dl (12.0-15.5); MEAN CORPUSCULAR HEMOGLOBIN 30.7 pg (27.0-33.0); MEAN CORPUSCULAR HGB CONC 29.9 g/dl (32.0-36.5); MEAN CORPUSCULAR VOLUME 102.7 fl (80.0-96.0); PLATELET COUNT, AUTOMATED 212 10^3/uL (150-450); RED BLOOD COUNT 3.36 10^6/uL (4.00-5.40); WHITE BLOOD COUNT 7.5 10^3/uL (4.0-10.0)
[2021-11-03 08:10] LABS: BILIRUBIN,TOTAL 0.4 MG/DL (0.2-1.0); CALCIUM LEVEL 9.8 MG/DL (8.8-10.2); CHOLESTEROL RISK RATIO 2.86 (<5); CREATININE FOR GFR 1.16 MG/DL (0.55-1.30); GLOMERULAR FILTRATION RATE 47.6 (>32); POTASSIUM SERUM 4.3 MEQ/L (3.5-5.1); TOTAL PROTEIN 7.1 GM/DL (6.4-8.2)
== END ==
LOC: SKLAB7 11-01 11:03
PROVIDERS: ATTEND Internal Medicine
DX: I48.91 Unspecified atrial fibrillation (principal); Z79.01 Long term (current) use of anticoagulants; E78.5 Hyperlipidemia, unspecified

== ENCOUNTER → 2021-12-04 | Outpatient (CLI) | payer MEDICARE, MEDICAID | LOC: SKLAB7 04:19 | PROVIDERS: ATTEND Internal Medicine | DX: Z53.9 Procedure and treatment not carried out, unspecified reason (principal) ==

== ENCOUNTER → 2021-12-05 | Outpatient (REF) | payer MEDICARE, MEDICAID | LOC: SKLAB7 10:24 | PROVIDERS: ATTEND Nurse Practitioner | DX: Z20.822 Contact with and (suspected) exposure to COVID-19 (principal) ==

== ENCOUNTER → 2022-02-02 | Outpatient (REF) | payer MEDICARE, MEDICAID | LOC: SKLAB7 18:15 | PROVIDERS: ATTEND Internal Medicine | DX: R41.0 Disorientation, unspecified (principal); Z53.8 Procedure and treatment not carried out for other reasons ==

== ENCOUNTER → 2022-02-03 | Outpatient (REF) | payer MEDICARE, MEDICAID ==
[2022-02-03 08:34] LABS: ABG BASE EXCESS 3.1 (-2.0-2.0); ABG HCO3 28.7 MEQ/L (22.0-26.0); ABG O2 SATURATION 92.7 % (95.0-99.0); ABG PARTIAL PRESSURE CO2 48.3 mmHg (35.0-45.0); ABG PARTIAL PRESSURE O2 65.7 mmHg (75.0-100.0); ABG STANDARD HCO3 27.1 MEQ/L (22.0-26.0); ABG TOTAL CO2 30.2 MEQ/L (23.0-31.0); ABG pH (ARTERIAL) 7.392 UNITS (7.350-7.450)
[2022-02-03 09:31] LABS: HEMATOCRIT 34.5 % (36.0-47.0); HEMOGLOBIN 10.2 g/dl (12.0-15.5); MEAN CORPUSCULAR HEMOGLOBIN 30.6 pg (27.0-33.0); MEAN CORPUSCULAR HGB CONC 29.6 g/dl (32.0-36.5); MEAN CORPUSCULAR VOLUME 103.6 fl (80.0-96.0); PLATELET COUNT, AUTOMATED 184 10^3/uL (150-450); RED BLOOD COUNT 3.33 10^6/uL (4.00-5.40); WHITE BLOOD COUNT 6.4 10^3/uL (4.0-10.0)
[2022-02-03 10:15] LABS: BILIRUBIN,TOTAL 0.6 MG/DL (0.2-1.0); CALCIUM LEVEL 9.1 MG/DL (8.8-10.2); CREATININE FOR GFR 1.03 MG/DL (0.55-1.30); GLOMERULAR FILTRATION RATE 54.5 (>32); POTASSIUM SERUM 4.1 MEQ/L (3.5-5.1); THYROID STIMULATING HORMONE 2.01 uIU/ML (0.358-3.740); TOTAL PROTEIN 7.3 GM/DL (6.4-8.2)
[2022-02-03 13:26] LABS: APPEARANCE, URINE MANUAL CLEAR (CLEAR); BILIRUBIN, URINE MANUAL NEGATIVE (NEGATIVE); BLOOD URINE MANUAL NEGATIVE (NEGATIVE); COLOR, URINE MANUAL LT YELLOW (YELLOW); GLUCOSE, URINE (UA) MANUAL NEGATIVE (NEGATIVE); KETONE, URINE MANUAL NEGATIVE (NEGATIVE); LEUKOCYTE ESTERASE, URINE MAN NEGATIVE (NEGATIVE); NITRITE, URINE MANUAL NEGATIVE (NEGATIVE); PROTEIN, URINE MANUAL NEGATIVE (NEGATIVE); SPECIFIC GRAVITY,URINE MANUAL 1.015 (1.002-1.035); UROBILINOGEN, URINE MANUAL NORMAL (NORMAL)
== END ==
LOC: SKLAB7 07:14
PROVIDERS: ATTEND Nurse Practitioner Family
DX: R41.0 Disorientation, unspecified (principal)

== ENCOUNTER → 2022-04-04 | Outpatient (REF) | payer MEDICARE, MEDICAID | LOC: SKLAB7 10:51 | PROVIDERS: ATTEND Nurse Practitioner | DX: M25.552 Pain in left hip (principal); W19.XXXA Unspecified fall, initial encounter; M16.0 Bilateral primary osteoarthritis of hip; Z96.652 Presence of left artificial knee joint ==

== ENCOUNTER → 2022-04-04 | Outpatient (CLI) | payer MEDICARE, MEDICAID | LOC: M RAD 14:59 | PROVIDERS: ATTEND Nurse Practitioner | DX: M16.0 Bilateral primary osteoarthritis of hip (principal) ==

== ENCOUNTER → 2022-04-05 | Outpatient (REF) | payer MEDICARE, MEDICAID ==
[2022-04-05 13:33] LABS: APPEARANCE, URINE MANUAL CLEAR (CLEAR); COLOR, URINE MANUAL YELLOW (YELLOW)
[2022-04-05 13:34] LABS: HEMATOCRIT 33.7 % (36.0-47.0); HEMOGLOBIN 9.9 g/dl (12.0-15.5); MEAN CORPUSCULAR HEMOGLOBIN 30.7 pg (27.0-33.0); MEAN CORPUSCULAR HGB CONC 29.4 g/dl (32.0-36.5); MEAN CORPUSCULAR VOLUME 104.3 fl (80.0-96.0); PLATELET COUNT, AUTOMATED 184 10^3/uL (150-450); RED BLOOD COUNT 3.23 10^6/uL (4.00-5.40); WHITE BLOOD COUNT 7.3 10^3/uL (4.0-10.0)
[2022-04-05 13:35] LABS: BILIRUBIN, URINE MANUAL NEGATIVE (NEGATIVE); BLOOD URINE MANUAL TRACE (NEGATIVE); GLUCOSE, URINE (UA) MANUAL NEGATIVE (NEGATIVE); KETONE, URINE MANUAL NEGATIVE (NEGATIVE); LEUKOCYTE ESTERASE, URINE MAN NEGATIVE (NEGATIVE); NITRITE, URINE MANUAL NEGATIVE (NEGATIVE); PROTEIN, URINE MANUAL TRACE mg/dL (NEGATIVE); UROBILINOGEN, URINE MANUAL NORMAL (NORMAL)
[2022-04-05 13:45] LABS: SQUAMOUS EPITHELIAL CELL URINE SMALL AMOUNT /hpf (SMALL AMT)
[2022-04-05 13:46] LABS: BACTERIA, URINE SMALL AMOUNT; MUCUS, URINE SMALL AMOUNT (NEGATIVE)
[2022-04-05 14:24] LABS: BILIRUBIN,TOTAL 0.9 MG/DL (0.3-1.2); CREATININE FOR GFR 1.59 MG/DL (0.55-1.30); POTASSIUM SERUM 4.2 MMOL/L (3.5-5.1); TOTAL PROTEIN 7.1 G/DL (5.7-8.2)
== END ==
LOC: SKLAB7 12:51
PROVIDERS: ATTEND Nurse Practitioner
DX: R41.82 Altered mental status, unspecified (principal)

== ENCOUNTER → 2022-04-06 | Outpatient (REF) | LOC: SKLAB7 14:20 | PROVIDERS: ATTEND Internal Medicine | DX: R71.8 Other abnormality of red blood cells (principal) ==

== ENCOUNTER → 2022-04-06 | Outpatient (REF) | payer MEDICARE, MEDICAID ==
[2022-04-06 07:51] LABS: HEMATOCRIT 30.4 % (36.0-47.0); HEMOGLOBIN 8.9 g/dl (12.0-15.5); MEAN CORPUSCULAR HEMOGLOBIN 30.6 pg (27.0-33.0); MEAN CORPUSCULAR HGB CONC 29.3 g/dl (32.0-36.5); MEAN CORPUSCULAR VOLUME 104.5 fl (80.0-96.0); PLATELET COUNT, AUTOMATED 162 10^3/uL (150-450); RED BLOOD COUNT 2.91 10^6/uL (4.00-5.40); WHITE BLOOD COUNT 7.5 10^3/uL (4.0-10.0)
[2022-04-06 08:23] LABS: CALCIUM LEVEL 8.2 MG/DL (8.3-10.6); CREATININE FOR GFR 1.28 MG/DL (0.55-1.30); GLOMERULAR FILTRATION RATE 42.4 (>32); POTASSIUM SERUM 3.9 MMOL/L (3.5-5.1)
== END ==
LOC: SKLAB7 07:00
PROVIDERS: ATTEND Nurse Practitioner
DX: R41.82 Altered mental status, unspecified (principal)

== ENCOUNTER → 2022-04-07 | Outpatient (REF) | payer MEDICARE, MEDICAID ==
[2022-04-07 14:22] LABS: HEMATOCRIT 32.3 % (36.0-47.0); HEMOGLOBIN 9.5 g/dl (12.0-15.5); MEAN CORPUSCULAR HEMOGLOBIN 31.1 pg (27.0-33.0); MEAN CORPUSCULAR HGB CONC 29.4 g/dl (32.0-36.5); MEAN CORPUSCULAR VOLUME 105.9 fl (80.0-96.0); PLATELET COUNT, AUTOMATED 184 10^3/uL (150-450); RED BLOOD COUNT 3.05 10^6/uL (4.00-5.40)
== END ==
LOC: SKLAB7 13:02
PROVIDERS: ATTEND Internal Medicine
DX: R71.8 Other abnormality of red blood cells (principal)

== ENCOUNTER → 2022-04-10 | Outpatient (REF) | payer OTHER, MEDICAID ==
[2022-04-10 11:33] LABS: HEMOGLOBIN 9.5 g/dl (12.0-15.5); MEAN CORPUSCULAR HEMOGLOBIN 30.9 pg (27.0-33.0); MEAN CORPUSCULAR HGB CONC 29.7 g/dl (32.0-36.5); MEAN CORPUSCULAR VOLUME 104.2 fl (80.0-96.0); PLATELET COUNT, AUTOMATED 203 10^3/uL (150-450); RED BLOOD COUNT 3.07 10^6/uL (4.00-5.40); WHITE BLOOD COUNT 5.9 10^3/uL (4.0-10.0)
[2022-04-10 13:47] LABS: CALCIUM LEVEL 8.9 MG/DL (8.3-10.6)
[2022-04-10 13:49] LABS: CREATININE FOR GFR 1.15 MG/DL (0.55-1.30)
== END ==
LOC: SKLAB7 01:20
PROVIDERS: ATTEND Internal Medicine
DX: N18.9 Chronic kidney disease, unspecified (principal); D63.1 Anemia in chronic kidney disease

== ENCOUNTER → 2022-04-27 | Outpatient (REF) | payer OTHER, MEDICAID ==
[2022-04-27 09:39] LABS: HEMATOCRIT 34.8 % (36.0-47.0); HEMOGLOBIN 10.1 g/dl (12.0-15.5); MEAN CORPUSCULAR HEMOGLOBIN 31.1 pg (27.0-33.0); MEAN CORPUSCULAR VOLUME 107.1 fl (80.0-96.0); PLATELET COUNT, AUTOMATED 177 10^3/uL (150-450); RED BLOOD COUNT 3.25 10^6/uL (4.00-5.40); WHITE BLOOD COUNT 5.8 10^3/uL (4.0-10.0)
[2022-04-27 09:51] LABS: ALBUMIN 2.6 G/DL (3.2-5.2); ALKALINE PHOSPHATASE 85 U/L (46-116); ALT/SGPT < 9 U/L (7.0-40); AST/SGOT 15 U/L (<34); BILIRUBIN,TOTAL 0.6 MG/DL (0.3-1.2); BLOOD UREA NITROGEN 20 MG/DL (9-23); CARBON DIOXIDE LEVEL 32 MMOL/L (20-31); CHLORIDE LEVEL 100 MMOL/L (98-107); CHOLESTEROL LEVEL 111 MG/DL (<200); CHOLESTEROL RISK RATIO 2.78 (<5); CREATININE FOR GFR 0.96 MG/DL (0.55-1.30); GLOMERULAR FILTRATION RATE 59.1 (>32); GLUCOSE, FASTING 102 MG/DL (74-106); HDL CHOLESTEROL 39.8 MG/DL (>40); LDL CHOLESTEROL 42.8 MG/DL (<100); NON-HDL-C 71 MG/DL; POTASSIUM SERUM 4.4 MMOL/L (3.5-5.1); SODIUM LEVEL 141 MMOL/L (136-145); TOTAL PROTEIN 6.7 G/DL (5.7-8.2); TRIGLYCERIDES LEVEL 142 MG/DL (<150)
== END ==
LOC: SKLAB7 07:00
PROVIDERS: ATTEND Nurse Practitioner
DX: I48.91 Unspecified atrial fibrillation (principal); Z79.01 Long term (current) use of anticoagulants; E78.5 Hyperlipidemia, unspecified

== ENCOUNTER → 2022-07-31 | Outpatient (REF) | payer OTHER, MEDICAID | LOC: SKLAB7 10:56 | PROVIDERS: ATTEND Nurse Practitioner | DX: M25.462 Effusion, left knee (principal); Z96.652 Presence of left artificial knee joint ==

== ENCOUNTER → 2022-07-31 | Outpatient (CLI) | payer MEDICARE, OTHER | LOC: M RAD 14:07 | PROVIDERS: ATTEND Nurse Practitioner | DX: R60.9 Edema, unspecified (principal) ==

== ENCOUNTER → 2022-10-17 | Outpatient (REF) | payer MEDICARE, MEDICAID ==
[2022-10-17 15:51] LABS: BASO % 0.5 % (0.0-1.0); EOS # 0.3 10^3/uL (0.0-0.5); EOS % 4.8 % (0.0-3.0); HEMATOCRIT 34.3 % (36.0-47.0); HEMOGLOBIN 10.2 g/dl (12.0-15.5); LYMPH % 16.1 % (24.0-44.0); MEAN CORPUSCULAR HEMOGLOBIN 30.7 pg (27.0-33.0); MEAN CORPUSCULAR HGB CONC 29.7 g/dl (32.0-36.5); MEAN CORPUSCULAR VOLUME 103.3 fl (80.0-96.0); MONO # 0.7 10^3/uL (0.0-0.8); MONO % 10.1 % (2.0-8.0); NEUTROPHILS # 4.4 10^3/uL (1.5-8.5); PLATELET COUNT, AUTOMATED 233 10^3/uL (150-450); RED BLOOD COUNT 3.32 10^6/uL (4.00-5.40); WHITE BLOOD COUNT 6.5 10^3/uL (4.0-10.0)
[2022-10-17 16:09] LABS: ERYTHROCYTE SEDIMENTATION RATE 98 mm/hr (0-30)
[2022-10-17 16:23] LABS: ALBUMIN 2.6 G/DL (3.2-5.2); ALKALINE PHOSPHATASE 80 U/L (46-116); ALT/SGPT < 9 U/L (7.0-40); AST/SGOT 15 U/L (<34); BILIRUBIN,TOTAL 0.6 MG/DL (0.3-1.2); BLOOD UREA NITROGEN 20 MG/DL (9-23); CALCIUM LEVEL 8.7 MG/DL (8.3-10.6); CARBON DIOXIDE LEVEL 34 MMOL/L (20-31); CHLORIDE LEVEL 101 MMOL/L (98-107); CREATININE FOR GFR 1.13 MG/DL (0.55-1.30); GLUCOSE, FASTING 122 MG/DL (74-106); POTASSIUM SERUM 4.4 MMOL/L (3.5-5.1); SODIUM LEVEL 140 MMOL/L (136-145); TOTAL PROTEIN 6.6 G/DL (5.7-8.2)
== END ==
LOC: SKLAB7 14:57
PROVIDERS: ATTEND Nurse Practitioner
DX: L03.114 Cellulitis of left upper limb (principal); M25.522 Pain in left elbow; M79.9 Soft tissue disorder, unspecified

== ENCOUNTER → 2022-10-20 | Outpatient (REF) | payer MEDICARE, MEDICAID ==
[2022-10-20 11:14] LABS: HEMATOCRIT 37.5 % (36.0-47.0); HEMOGLOBIN 11.3 g/dl (12.0-15.5); MEAN CORPUSCULAR HEMOGLOBIN 30.9 pg (27.0-33.0); MEAN CORPUSCULAR HGB CONC 30.1 g/dl (32.0-36.5); MEAN CORPUSCULAR VOLUME 102.5 fl (80.0-96.0); PLATELET COUNT, AUTOMATED 296 10^3/uL (150-450); RED BLOOD COUNT 3.66 10^6/uL (4.00-5.40); WHITE BLOOD COUNT 7.1 10^3/uL (4.0-10.0)
[2022-10-20 11:24] LABS: C REACTIVE PROTEIN QUANTITATIV 5.6 MG/DL (<1.0)
[2022-10-20 11:26] LABS: CALCIUM LEVEL 9.3 MG/DL (8.3-10.6); CREATININE FOR GFR 1.03 MG/DL (0.55-1.30); GLOMERULAR FILTRATION RATE 54.5 (>32)
[2022-10-20 11:27] LABS: ERYTHROCYTE SEDIMENTATION RATE 127 mm/hr (0-30)
== END ==
LOC: SKLAB7 10:17
PROVIDERS: ATTEND Nurse Practitioner
DX: I51.7 Cardiomegaly (principal); R91.8 Other nonspecific abnormal finding of lung field; Z96.82 Presence of neurostimulator; Z95.0 Presence of cardiac pacemaker

== ENCOUNTER → 2022-10-20 | Outpatient (CLI) | payer MEDICARE, MEDICAID | LOC: M RAD 16:19 | PROVIDERS: ATTEND Nurse Practitioner Family | DX: R51.9 Headache, unspecified (principal) ==

== ENCOUNTER → 2022-10-23 | Outpatient (REF) | payer MEDICARE, MEDICAID ==
[2022-10-23 08:40] LABS: BASO % 0.6 % (0.0-1.0); EOS # 0.2 10^3/uL (0.0-0.5); EOS % 3.3 % (0.0-3.0); HEMATOCRIT 35.2 % (36.0-47.0); HEMOGLOBIN 10.5 g/dl (12.0-15.5); LYMPH # 1.5 10^3/uL (1.5-5.0); LYMPH % 21.5 % (24.0-44.0); MEAN CORPUSCULAR HGB CONC 29.8 g/dl (32.0-36.5); MEAN CORPUSCULAR VOLUME 103.8 fl (80.0-96.0); MONO # 0.7 10^3/uL (0.0-0.8); MONO % 9.9 % (2.0-8.0); NEUTROPHILS # 4.4 10^3/uL (1.5-8.5); NEUTROPHILS % 64.4 % (36.0-66.0); PLATELET COUNT, AUTOMATED 248 10^3/uL (150-450); RED BLOOD COUNT 3.39 10^6/uL (4.00-5.40); WHITE BLOOD COUNT 6.9 10^3/uL (4.0-10.0)
[2022-10-23 09:08] LABS: ALBUMIN 2.7 G/DL (3.2-5.2); CALCIUM LEVEL 8.7 MG/DL (8.3-10.6); CHOLESTEROL RISK RATIO 2.26 (<5); CREATININE FOR GFR 1.11 MG/DL (0.55-1.30); ERYTHROCYTE SEDIMENTATION RATE 80 mm/hr (0-30); LDL CHOLESTEROL 38.4 MG/DL (<100); PHOSPHORUS LEVEL 3.6 MG/DL (2.4-5.1); POTASSIUM SERUM 3.7 MMOL/L (3.5-5.1)
== END ==
LOC: SKLAB7 07:00
PROVIDERS: ATTEND Internal Medicine
DX: E78.5 Hyperlipidemia, unspecified (principal); I50.9 Heart failure, unspecified

== ENCOUNTER → 2022-12-19 | Outpatient (CLI) | payer MEDICARE, MEDICAID ==
[~2022-12-19] MED LIST changes: +DICY-61; -DICY10CA13; -HM S0.65 NARES; +SALI0.6531 NARES
== END ==
LOC: M WHC 08:30
PROVIDERS: ATTEND Nurse Practitioner
DX: R92.8 Other abnormal and inconclusive findings on diagnostic imaging of breast (principal)

== ENCOUNTER → 2022-12-20 | Outpatient (REF) | payer MEDICARE, MEDICAID | LOC: SKLAB7 14:26 | PROVIDERS: ATTEND Nurse Practitioner Adult Health | DX: R10.31 Right lower quadrant pain (principal) ==

== ENCOUNTER → 2023-03-20 | Outpatient (REF) | payer MEDICARE, MEDICAID ==
[2023-03-20 13:12] LABS: HEMATOCRIT 35.5 % (36.0-47.0); HEMOGLOBIN 10.8 g/dl (12.0-15.5); MEAN CORPUSCULAR HEMOGLOBIN 29.8 pg (27.0-33.0); MEAN CORPUSCULAR HGB CONC 30.4 g/dl (32.0-36.5); MEAN CORPUSCULAR VOLUME 98.1 fl (80.0-96.0); PLATELET COUNT, AUTOMATED 284 10^3/uL (150-450); RED BLOOD COUNT 3.62 10^6/uL (4.00-5.40); WHITE BLOOD COUNT 7.4 10^3/uL (4.0-10.0)
[2023-03-20 13:34] LABS: BLOOD UREA NITROGEN 13 MG/DL (9-23); CALCIUM LEVEL 9.2 MG/DL (8.3-10.6); CARBON DIOXIDE LEVEL 31 MMOL/L (20-31); CHLORIDE LEVEL 101 MMOL/L (98-107); CREATININE FOR GFR 0.79 MG/DL (0.55-1.30); GLOMERULAR FILTRATION RATE > 60.0 (>32); GLUCOSE, FASTING 93 MG/DL (74-106); POTASSIUM SERUM 3.9 MMOL/L (3.5-5.1); SODIUM LEVEL 140 MMOL/L (136-145)
[2023-03-20 14:06] LABS: APPEARANCE, URINE HAZY (CLEAR); BACTERIA, URINE AUTO NEGATIVE (NEGATIVE); BILIRUBIN, URINE AUTO NEGATIVE (NEGATIVE); BLOOD, URINE BLOOD NEGATIVE (NEGATIVE); COLOR, URINE YELLOW (YELLOW); GLUCOSE, URINE (UA) AUTO NEGATIVE (NEGATIVE); KETONE, URINE AUTO NEGATIVE (NEGATIVE); LEUKOCYTE ESTERASE, URINE AUTO TRACE (NEGATIVE); MUCUS, URINE SMALL (NEGATIVE); NITRITE, URINE AUTO NEGATIVE (NEGATIVE); PROTEIN, URINE AUTO NEGATIVE (NEGATIVE); RBC, URINE AUTO 1 /HPF (0-3); SPECIFIC GRAVITY URINE AUTO 1.023 (1.002-1.035); SQUAMOUS EPITHELIAL CELL UR AU 1 /HPF (0-6); UROBILINOGEN, URINE AUTO 0.2 mg/dL (0.0-2.0); WBC, URINE AUTO 7 /HPF (0-3)
== END ==
LOC: SKLAB7 12:10
PROVIDERS: ATTEND Nurse Practitioner
DX: R41.82 Altered mental status, unspecified (principal)

== ENCOUNTER → 2023-05-01 | Outpatient (REF) | payer MEDICARE, MEDICAID ==
[2023-05-01 10:16] LABS: HEMATOCRIT 34.4 % (36.0-47.0); HEMOGLOBIN 10.5 g/dl (12.0-15.5); MEAN CORPUSCULAR HEMOGLOBIN 30.4 pg (27.0-33.0); MEAN CORPUSCULAR HGB CONC 30.5 g/dl (32.0-36.5); MEAN CORPUSCULAR VOLUME 99.7 fl (80.0-96.0); PLATELET COUNT, AUTOMATED 283 10^3/uL (150-450); RED BLOOD COUNT 3.45 10^6/uL (4.00-5.40); WHITE BLOOD COUNT 6.6 10^3/uL (4.0-10.0)
[2023-05-01 10:47] LABS: ALBUMIN 2.4 G/DL (3.2-5.2); ALKALINE PHOSPHATASE 82 U/L (46-116); ALT/SGPT < 9 U/L (7.0-40); AST/SGOT 16 U/L (<34); BILIRUBIN,TOTAL 0.6 MG/DL (0.3-1.2); BLOOD UREA NITROGEN 18 MG/DL (9-23); CALCIUM LEVEL 9.2 MG/DL (8.3-10.6); CARBON DIOXIDE LEVEL 35 MMOL/L (20-31); CHLORIDE LEVEL 97 MMOL/L (98-107); CHOLESTEROL LEVEL 114 MG/DL (<200); CHOLESTEROL RISK RATIO 2.72 (<5); CREATININE FOR GFR 0.83 MG/DL (0.55-1.30); GLOMERULAR FILTRATION RATE > 60.0 (>32); GLUCOSE, FASTING 88 MG/DL (74-106); HDL CHOLESTEROL 41.9 MG/DL (>40); LDL CHOLESTEROL 45.3 MG/DL (<100); NON-HDL-C 72.1 MG/DL; POTASSIUM SERUM 4.3 MMOL/L (3.5-5.1); SODIUM LEVEL 135 MMOL/L (136-145); TOTAL PROTEIN 6.7 G/DL (5.7-8.2); TRIGLYCERIDES LEVEL 134 MG/DL (<150)
== END ==
LOC: SKLAB7 07:42
PROVIDERS: ATTEND Internal Medicine
DX: Z79.01 Long term (current) use of anticoagulants (principal); I48.91 Unspecified atrial fibrillation; I51.9 Heart disease, unspecified

== ENCOUNTER → 2023-05-08 | Outpatient (REF) | payer MEDICARE, MEDICAID ==
[2023-05-08 08:13] LABS: BLOOD UREA NITROGEN 19 MG/DL (9-23); CALCIUM LEVEL 9.5 MG/DL (8.3-10.6); CARBON DIOXIDE LEVEL 34 MMOL/L (20-31); CHLORIDE LEVEL 99 MMOL/L (98-107); CREATININE FOR GFR 0.83 MG/DL (0.55-1.30); GLOMERULAR FILTRATION RATE > 60.0 (>32); GLUCOSE, FASTING 95 MG/DL (74-106); POTASSIUM SERUM 3.5 MMOL/L (3.5-5.1); SODIUM LEVEL 139 MMOL/L (136-145)
== END ==
LOC: SKLAB7 07:03
PROVIDERS: ATTEND Internal Medicine
DX: I50.9 Heart failure, unspecified (principal)

== ENCOUNTER → 2023-06-29 | Outpatient (REF) | LOC: SKLAB7 03:41 | PROVIDERS: ATTEND Internal Medicine | DX: M79.671 Pain in right foot (principal); Z91.81 History of falling ==

== ENCOUNTER → 2023-09-26 | Outpatient (REF) | payer MEDICARE, MEDICAID ==
[~2023-09-26] MED LIST changes: -ROSU10TA6; -ROSU10TA6 PO; +ROSU10TA61; +ROSU10TA61 PO
== END ==
LOC: SKLAB7 15:23
PROVIDERS: ATTEND Internal Medicine
DX: I51.7 Cardiomegaly (principal); Z95.0 Presence of cardiac pacemaker; Z96.82 Presence of neurostimulator

== ENCOUNTER → 2023-09-26 | Outpatient (REF) | payer MEDICARE, MEDICAID ==
[2023-09-26 16:59] LABS: HEMATOCRIT 35.1 % (36.0-47.0); HEMOGLOBIN 11.1 g/dl (12.0-15.5); MEAN CORPUSCULAR HEMOGLOBIN 30.3 pg (27.0-33.0); MEAN CORPUSCULAR HGB CONC 31.6 g/dl (32.0-36.5); MEAN CORPUSCULAR VOLUME 95.9 fl (80.0-96.0); PLATELET COUNT, AUTOMATED 234 10^3/uL (150-450); RED BLOOD COUNT 3.66 10^6/uL (4.00-5.40); WHITE BLOOD COUNT 11.3 10^3/uL (4.0-10.0)
[2023-09-26 17:21] LABS: CREATININE FOR GFR 1.06 MG/DL (0.55-1.30); GLOMERULAR FILTRATION RATE 52.6 (>32); POTASSIUM SERUM 4.5 MMOL/L (3.5-5.1)
== END ==
LOC: SKLAB7 15:20
PROVIDERS: ATTEND Internal Medicine
DX: J06.9 Acute upper respiratory infection, unspecified (principal)

== ENCOUNTER → 2023-10-30 | Outpatient (REF) | payer MEDICARE, MEDICAID ==
[2023-10-30 09:53] LABS: ALBUMIN 2.6 G/DL (3.2-5.2); ALKALINE PHOSPHATASE 98 U/L (46-116); ALT/SGPT 20 U/L (7.0-40); AST/SGOT 24 U/L (<34); BILIRUBIN,TOTAL 0.6 MG/DL (0.3-1.2); BLOOD UREA NITROGEN 26 MG/DL (9-23); CALCIUM LEVEL 9.4 MG/DL (8.3-10.6); CARBON DIOXIDE LEVEL 39 MMOL/L (20-31); CHLORIDE LEVEL 96 MMOL/L (98-107); CHOLESTEROL LEVEL 151 MG/DL (<200); CHOLESTEROL RISK RATIO 3.84 (<5); CREATININE FOR GFR 0.91 MG/DL (0.55-1.30); GLOMERULAR FILTRATION RATE > 60.0 (>32); GLUCOSE, FASTING 89 MG/DL (74-106); HDL CHOLESTEROL 39.3 MG/DL (>40); LDL CHOLESTEROL 84.5 MG/DL (<100); NON-HDL-C 111.7 MG/DL; POTASSIUM SERUM 3.9 MMOL/L (3.5-5.1); SODIUM LEVEL 137 MMOL/L (136-145); TOTAL PROTEIN 7.1 G/DL (5.7-8.2); TRIGLYCERIDES LEVEL 136 MG/DL (<150)
[2023-10-30 14:07] LABS: PHOSPHORUS LEVEL 3.9 MG/DL (2.4-5.1)
[2023-10-30 14:08] LABS: PTH INTACT 28.8 PG/ML (18.5-88.0)
[2023-10-30 14:09] LABS: TOTAL 25(OH) VITAMIN D 49.8 NG/ML (20.0-100.0)
== END ==
LOC: SKLAB7 07:52
PROVIDERS: ATTEND Internal Medicine
DX: N18.9 Chronic kidney disease, unspecified (principal); I48.91 Unspecified atrial fibrillation; E78.5 Hyperlipidemia, unspecified; Z79.899 Other long term (current) drug therapy

== ENCOUNTER → 2023-11-19 | Outpatient (REF) | payer MEDICARE, MEDICAID | LOC: SKLAB7 13:54 | PROVIDERS: ATTEND Internal Medicine | DX: R91.8 Other nonspecific abnormal finding of lung field (principal); I51.7 Cardiomegaly; Z95.0 Presence of cardiac pacemaker; R06.02 Shortness of breath ==

== ENCOUNTER → 2024-03-27 | Outpatient (REF) | payer MEDICARE, MEDICAID ==
[2024-03-27 10:46] LABS: HEMATOCRIT 35.2 % (36.0-47.0); HEMOGLOBIN 10.5 g/dl (12.0-15.5); MEAN CORPUSCULAR HEMOGLOBIN 30.8 pg (27.0-33.0); MEAN CORPUSCULAR HGB CONC 29.8 g/dl (32.0-36.5); MEAN CORPUSCULAR VOLUME 103.2 fl (80.0-96.0); PLATELET COUNT, AUTOMATED 167 10^3/uL (150-450); RED BLOOD COUNT 3.41 10^6/uL (4.00-5.40); WHITE BLOOD COUNT 4.7 10^3/uL (4.0-10.0)
== END ==
LOC: SKLAB7 07:00
PROVIDERS: ATTEND Internal Medicine
DX: Z79.01 Long term (current) use of anticoagulants (principal)

== ENCOUNTER → 2024-04-04 | Outpatient (CLI) | payer MEDICARE, MEDICAID | LOC: M RAD 10:29 | PROVIDERS: ATTEND Nurse Practitioner Adult Health | DX: M25.511 Pain in right shoulder (principal) ==

== ENCOUNTER → 2024-04-14 | Outpatient (REF) | payer MEDICARE, MEDICAID ==
[2024-04-14 14:01] LABS: HEMATOCRIT 38.2 % (36.0-47.0); HEMOGLOBIN 11.6 g/dl (12.0-15.5); MEAN CORPUSCULAR HGB CONC 30.4 g/dl (32.0-36.5); MEAN CORPUSCULAR VOLUME 102.1 fl (80.0-96.0); PLATELET COUNT, AUTOMATED 136 10^3/uL (150-450); RED BLOOD COUNT 3.74 10^6/uL (4.00-5.40); WHITE BLOOD COUNT 4.4 10^3/uL (4.0-10.0)
[2024-04-14 14:29] LABS: CALCIUM LEVEL 10.3 MG/DL (8.3-10.6); CREATININE FOR GFR 1.28 MG/DL (0.55-1.30); GLOMERULAR FILTRATION RATE 42.2 (>32)
== END ==
LOC: SKLAB7 13:30
PROVIDERS: ATTEND Internal Medicine
DX: R41.0 Disorientation, unspecified (principal)

== ENCOUNTER → 2024-05-01 | Outpatient (REF) | payer MEDICARE, MEDICAID ==
[~2024-05-01] MED LIST changes: -ADV250INH; -ADV250INH INH; +ADVA1AER9; +ADVA1AER9 INH
[2024-05-01 09:53] LABS: ALBUMIN 2.9 G/DL (3.2-5.2); ALKALINE PHOSPHATASE 95 U/L (35-104); ALT/SGPT < 9 U/L (7.0-40); AST/SGOT 16 U/L (<34); BILIRUBIN,TOTAL 1.5 MG/DL (0.3-1.2); BLOOD UREA NITROGEN 30 MG/DL (9-23); CALCIUM LEVEL 10.3 MG/DL (8.3-10.6); CARBON DIOXIDE LEVEL 30 MMOL/L (20-31); CHLORIDE LEVEL 104 MMOL/L (98-107); CHOLESTEROL LEVEL 168 MG/DL (<200); CHOLESTEROL RISK RATIO 3.33 (<5); CREATININE FOR GFR 1.03 MG/DL (0.55-1.30); GLOMERULAR FILTRATION RATE 54.2 (>32); GLUCOSE, FASTING 95 MG/DL (74-106); HDL CHOLESTEROL 50.3 MG/DL (>40); LDL CHOLESTEROL 102.1 MG/DL (<100); NON-HDL-C 117.7 MG/DL; SODIUM LEVEL 145 MMOL/L (136-145); TOTAL PROTEIN 7.6 G/DL (5.7-8.2); TRIGLYCERIDES LEVEL 78 MG/DL (<150)
== END ==
LOC: SKLAB7 10:09
PROVIDERS: ATTEND Internal Medicine
DX: I48.91 Unspecified atrial fibrillation (principal); E78.5 Hyperlipidemia, unspecified

== ENCOUNTER → 2024-05-03 | Outpatient (REF) | payer MEDICARE, MEDICAID ==
[2024-05-03 01:29] LABS: HEMATOCRIT 34.9 % (36.0-47.0); HEMOGLOBIN 10.9 g/dl (12.0-15.5); MEAN CORPUSCULAR HEMOGLOBIN 31.7 pg (27.0-33.0); MEAN CORPUSCULAR HGB CONC 31.2 g/dl (32.0-36.5); MEAN CORPUSCULAR VOLUME 101.5 fl (80.0-96.0); PLATELET COUNT, AUTOMATED 141 10^3/uL (150-450); RED BLOOD COUNT 3.44 10^6/uL (4.00-5.40); WHITE BLOOD COUNT 6.5 10^3/uL (4.0-10.0)
[2024-05-03 01:44] LABS: CALCIUM LEVEL 9.3 MG/DL (8.3-10.6); GLOMERULAR FILTRATION RATE 56.1 (>32); POTASSIUM SERUM 3.7 MMOL/L (3.5-5.1)
== END ==
LOC: SKLAB7 05-02 23:28
PROVIDERS: ATTEND Internal Medicine
DX: R06.02 Shortness of breath (principal)

== ENCOUNTER 2024-05-27 19:27 | Inpatient (IN) | payer MEDICARE, MEDICAID ==
[~2024-05-27] VITALS: Ht 152.4 cm; Wt 91.7 kg
[2024-05-27 20:04] LABS: BASO # 0.1 10^3/uL (0.0-0.2); BASO % 1.2 % (0.0-1.0); EOS # 0.2 10^3/uL (0.0-0.5); EOS % 3.7 % (0.0-3.0); HEMATOCRIT 40.6 % (36.0-47.0); HEMOGLOBIN 12.4 g/dl (12.0-15.5); LYMPH # 1.5 10^3/uL (1.5-5.0); LYMPH % 22.9 % (24.0-44.0); MEAN CORPUSCULAR HEMOGLOBIN 31.6 pg (27.0-33.0); MEAN CORPUSCULAR HGB CONC 30.5 g/dl (32.0-36.5); MEAN CORPUSCULAR VOLUME 103.3 fl (80.0-96.0); MONO # 0.6 10^3/uL (0.0-0.8); MONO % 9.7 % (2.0-8.0); NEUTROPHILS % 61.9 % (36.0-66.0); PLATELET COUNT, AUTOMATED 193 10^3/uL (150-450); RED BLOOD COUNT 3.93 10^6/uL (4.00-5.40); WHITE BLOOD COUNT 6.5 10^3/uL (4.0-10.0)
[2024-05-27 20:32] LABS: CK-MB VALUE MASS < 1.0 NG/ML (<3.6)
[2024-05-27 20:42] LABS: BLOOD UREA NITROGEN 55 MG/DL (9-23); CALCIUM LEVEL 9.2 MG/DL (8.3-10.6); CARBON DIOXIDE LEVEL 28 MMOL/L (20-31); CHLORIDE LEVEL 103 MMOL/L (98-107); CPK CREATINE PHOSPHOKINASE 65 U/L (34-145); CREATININE FOR GFR 1.67 MG/DL (0.55-1.30); GLUCOSE, FASTING 100 MG/DL (74-106); MB/CK RELATIVE INDEX 1.53 (< OR =4); POTASSIUM SERUM 6.6 MMOL/L (3.5-5.1); SODIUM LEVEL 138 MMOL/L (136-145)
[2024-05-27 21:51] LABS: CK-MB VALUE MASS < 1.0 NG/ML (<3.6)
[2024-05-27 21:54] LABS: CPK CREATINE PHOSPHOKINASE 50 U/L (34-145)
[2024-05-27 21:54] LABS: INR 1.76; PROTHROMBIN TIME 20.7 SECONDS (12.5-14.5)
[2024-05-27] MEDS: NS (Normal Saline) 0.9% 1,000 ML IV ONE (21:58)
[2024-05-27] MEDS: CALCIUM GLUCONATE 1,000MG/10ML VIAL (100MG/ML) IV ONE (21:58)
[2024-05-27] MEDS: DEXTROSE 50% 50ML SYRINGE IV ONE (23:33)
[2024-05-27] MEDS: HumuLIN R (REGULAR) INSULIN (NovoLIN R) **100U/ML** PER UNIT IV ONE (23:33)
[2024-05-27] MEDS: ALBUTEROL SULFATE 2.5MG/0.5ML INH NEB SOLN INH ONE (23:42)
[2024-05-27] MEDS ORDERED: FURO80TA2 PO (23:46)
[2024-05-27] MEDS ORDERED: BISA10SU27 PR (23:46)
[2024-05-27] MEDS ORDERED: ACET-897 PO (23:46)
[2024-05-27] MEDS ORDERED: HYDR-3713 PO ×2 (23:46)
[2024-05-27] MEDS ORDERED: POTA10CA70 PO (23:46)
[2024-05-27] MEDS ORDERED: SENN-23 PO (23:46)
[2024-05-27] MEDS ORDERED: BISO5TAB14 PO (23:46)
[2024-05-27] MEDS ORDERED: MILKSUS3 PO (23:46)
[2024-05-27] MEDS ORDERED: LEXA1TAB2 PO (23:46)
[2024-05-27] MEDS ORDERED: GABA-1172 PO (23:46)
[2024-05-27] MEDS ORDERED: FAMO40TA3 PO (23:46)
[2024-05-27] MEDS ORDERED: CHOL1250 PO (23:46)
[2024-05-27] MEDS ORDERED: ALBU2.5V10 INH (23:46)
[2024-05-27] MEDS ORDERED: FLEEENE12 PR (23:46)
[2024-05-27] MEDS ORDERED: SYMB16INH INH (23:46)
[2024-05-27] MEDS ORDERED: HOME MED LIST COMPLETE! XX SCH (23:50)
[2024-05-28] VITALS (79 sets, daily range): BP systolic 34–138; BP diastolic 15–91; TEMP 97–97.8; O2SAT 77–99
[2024-05-28] MEDS: PATIROMER SORBITEX CALCIUM 8.4 GM POWDER PACKET (VELTASSA) PO ONE (00:11)
[2024-05-28] MEDS: ATROPINE SULF 1MG/10ML SYRINGE IV ONE (01:16)
[2024-05-28] MEDS: ATROPINE SULF 1MG/10ML SYRINGE IV PRN (03:31)
[2024-05-28] MEDS ORDERED: ALBUTEROL SULFATE 2.5MG/0.5ML INH NEB SOLN INH PRN (04:30)
[2024-05-28] MEDS: GLUCAGON INJ 1MG VIAL IV ONE ×2 (04:32→05:39)
[2024-05-28 05:13] LABS: HEMATOCRIT 37.8 % (36.0-47.0); HEMOGLOBIN 11.4 g/dl (12.0-15.5); MEAN CORPUSCULAR HEMOGLOBIN 31.2 pg (27.0-33.0); MEAN CORPUSCULAR HGB CONC 30.2 g/dl (32.0-36.5); MEAN CORPUSCULAR VOLUME 103.6 fl (80.0-96.0); PLATELET COUNT, AUTOMATED 171 10^3/uL (150-450); RED BLOOD COUNT 3.65 10^6/uL (4.00-5.40); WHITE BLOOD COUNT 5.8 10^3/uL (4.0-10.0)
[2024-05-28 05:41] LABS: ALBUMIN 3.1 G/DL (3.2-5.2); BILIRUBIN,TOTAL 1.1 MG/DL (0.3-1.2); CALCIUM LEVEL 9.5 MG/DL (8.3-10.6); CREATININE FOR GFR 1.51 MG/DL (0.55-1.30); GLOMERULAR FILTRATION RATE 34.9 (>32); MAGNESIUM LEVEL 2.2 MG/DL (1.8-2.4); POTASSIUM SERUM 4.8 MMOL/L (3.5-5.1); TOTAL PROTEIN 7.8 G/DL (5.7-8.2)
[2024-05-28] MEDS: SYMBICORT 160/4.5MCG INHALER 6GM INH SCH (07:37)
[2024-05-28] MEDS ORDERED: DOBUTamine HCL 500,000 MCG in IV 1 EA IV SCH (07:45)
[2024-05-28] MEDS: DOBUTamine HCL 500,000 MCG in IV 1 EA IV SCH (08:07)
[2024-05-28] MEDS: FUROSEMIDE 80 MG TAB PO SCH (08:11)
[2024-05-28] MEDS: APIXABAN 5 MG TAB (ELIQUIS) PO SCH (08:11)
[2024-05-28] MEDS: PANTOPRAZOLE 40MG VIAL IV SCH (08:18)
[2024-05-28] MEDS ORDERED: POTASSIUM CHLORIDE 10MEQ SR TABLET PO SCH (09:00)
[2024-05-28] MEDS: VASOPRESSIN IN 0.9 % NACL 20 UNIT in IV 1 EA IV SCH (11:34)
[2024-05-28] MEDS: D5W/LR 1,000 ML IV SCH (16:18)
[2024-05-29] VITALS (111 sets, daily range): BP systolic 64–149; BP diastolic 35–96; TEMP 96.7–97.3; O2SAT 87–96
[2024-05-29 06:20] LABS: ALBUMIN 2.7 G/DL (3.2-5.2); BILIRUBIN,TOTAL 1.5 MG/DL (0.3-1.2); CALCIUM LEVEL 9.5 MG/DL (8.3-10.6); CREATININE FOR GFR 1.18 MG/DL (0.55-1.30); GLOMERULAR FILTRATION RATE 46.3 (>32); POTASSIUM SERUM 4.5 MMOL/L (3.5-5.1); TOTAL PROTEIN 7.3 G/DL (5.7-8.2)
[2024-05-29] MEDS: DOPamine HCL 400 MG in IV 1 EA IV SCH (10:01)
[2024-05-29] MEDS: LIDOCAINE 5% (LIDODERM) PATCH TD ONE (20:38)
[2024-05-30] VITALS (26 sets, daily range): BP systolic 107–151; BP diastolic 49–72; TEMP 97.2–98; O2SAT 86–95
[2024-05-30 04:41] LABS: BASO % 0.4 % (0.0-1.0); EOS % 0.2 % (0.0-3.0); HEMATOCRIT 36.4 % (36.0-47.0); HEMOGLOBIN 11.7 g/dl (12.0-15.5); LYMPH # 0.9 10^3/uL (1.5-5.0); LYMPH % 9.9 % (24.0-44.0); MEAN CORPUSCULAR HEMOGLOBIN 32.1 pg (27.0-33.0); MEAN CORPUSCULAR HGB CONC 32.1 g/dl (32.0-36.5); MEAN CORPUSCULAR VOLUME 99.7 fl (80.0-96.0); MONO # 0.9 10^3/uL (0.0-0.8); MONO % 10.5 % (2.0-8.0); NEUTROPHILS % 78.8 % (36.0-66.0); PLATELET COUNT, AUTOMATED 193 10^3/uL (150-450); RED BLOOD COUNT 3.65 10^6/uL (4.00-5.40); WHITE BLOOD COUNT 8.9 10^3/uL (4.0-10.0)
[2024-05-30 05:09] LABS: CALCIUM LEVEL 9.9 MG/DL (8.3-10.6); CREATININE FOR GFR 1.01 MG/DL (0.55-1.30); GLOMERULAR FILTRATION RATE 55.5 (>32); MAGNESIUM LEVEL 1.7 MG/DL (1.8-2.4); POTASSIUM SERUM 4.3 MMOL/L (3.5-5.1)
[2024-05-30] MEDS ORDERED: MAG SULF 1GM/100ML (MAG RUN) 1 GM in IV 1 EA IV ONE (09:35)
[2024-05-30] MEDS: MAGNESIUM OXIDE 400MG TAB (MAG-OX) PO ONE (09:52)
[2024-05-30] MEDS: MORPHINE 2 MG/ML 1ML VIAL IV PRN (13:34)
[2024-05-30] MEDS: LORazepam 2 MG/ML 1ML VIAL IV PRN (13:53)
[2024-05-30] MEDS ORDERED: NYSTATIN OINTMENT 15 GM TOP PRN (17:10)
[2024-05-31] MEDS ORDERED: MORPHINE 10MG/0.5ML ORAL CONCENTRATE SOLUTION U/D SL PRN (14:25)
[2024-05-31] MEDS ORDERED: LORazepam 2 MG/ML 1ML VIAL IV PRN (14:25)
[2024-05-31] MEDS: LORazepam 1 MG TAB PO PRN ×2 (16:19→18:06)
[2024-05-31] MEDS: MORPHINE 10MG/0.5ML ORAL CONCENTRATE SOLUTION U/D SL PRN ×2 (16:19→18:19)
[2024-05-31] MEDS: LORazepam 2 MG TAB PO PRN (19:22)
[2024-06-01] MEDS: LORazepam 2 MG TAB PO PRN (05:00)
[2024-06-01] MEDS: MORPHINE 10MG/0.5ML ORAL CONCENTRATE SOLUTION U/D SL PRN (05:01)
[2024-06-01] MEDS: SCOPOLAMINE 1MG TRANSDERMAL PATCH TOP PRN (11:01)
[2024-06-02] MEDS: ATROPINE SULFATE 1% OPHTH SOLN 2ML BTL SL PRN (00:10)
== END 2024-06-02 11:55 | disposition expired | DRG 308 ==
LOC: M ED 19:27 → M ED INP 23:23 → UNDOADMIN 23:23 → M ICU 05-28 03:02 → M MSPAV 05-30 17:02
PROVIDERS: ADMIT Family Medicine; ATTEND Student in an Organized Health Care Education/Training Program
DX: R00.1 Bradycardia, unspecified (principal); G92.8 Other toxic encephalopathy; N17.9 Acute kidney failure, unspecified; I50.32 Chronic diastolic (congestive) heart failure; R57.0 Cardiogenic shock; Z66 Do not resuscitate; J44.9 Chronic obstructive pulmonary disease, unspecified; I48.91 Unspecified atrial fibrillation; I49.5 Sick sinus syndrome; E87.5 Hyperkalemia; F32.A Depression, unspecified; I95.9 Hypotension, unspecified; I11.0 Hypertensive heart disease with heart failure; G47.33 Obstructive sleep apnea (adult) (pediatric); K21.9 Gastro-esophageal reflux disease without esophagitis; Z85.3 Personal history of malignant neoplasm of breast; Z90.49 Acquired absence of other specified parts of digestive tract; Z90.79 Acquired absence of other genital organ(s); Z79.01 Long term (current) use of anticoagulants; Z79.899 Other long term (current) drug therapy; Z88.2 Allergy status to sulfonamides; Z88.8 Allergy status to other drugs, medicaments and biological substances; Z74.01 Bed confinement status; Z95.0 Presence of cardiac pacemaker